=== PATIENT | female | born 1955 | race American Indian/Alaskan Native ===

== ENCOUNTER 2016-09-04 10:17 | Outpatient (CLI) | payer OTHER ==
--- NOTE | 2016-09-04 11:13 | XRay Report ---
RIGHT SHOULDER: Routine views demonstrate normal bony and soft tissue structures with normal joint alignment of the shoulder. IMPRESSION: Normal study.
--- NOTE | 2016-09-04 11:25 | XRay Report ---
Bilateral knee: History: Bilateral knee pain. Findings: There is calcification noted of the medial collateral ligament adjacent to the femoral condyle left knee. No articular abnormality. No fracture or dislocation. No definite bony or articular abnormality right kidney. No fracture, dislocation or soft tissue calcification. Impression: No acute changes. Findings as detailed above.
== END 2016-09-04 10:18 | disposition home or self-care (01) ==
LOC: XRAY 10:17
PROVIDERS: ATTEND Internal Medicine
DX: M23.8X2 Other internal derangements of left knee (principal); M23.8X1 Other internal derangements of right knee; E11.9 Type 2 diabetes mellitus without complications; I10 Essential (primary) hypertension; H53.19 Other subjective visual disturbances; E78.00 Pure hypercholesterolemia, unspecified

== ENCOUNTER 2017-02-18 03:30 | Inpatient (IN) | payer OTHER ==
--- NOTE | 2017-02-18 03:54 | Emergency Department Report ---
HPI - General Chief Complaint: Dyspnea/Respdistress Time Seen by Provider: 02/18/17 03:35 - [facility] HPI: Room 20 The patient is a 61-year-old female presenting with a chief complaint of shortness of breath. The patient states she was in her usual state of health until this morning at approximately 01:00 she awakened feeling short of breath. Patient denied chest pain at any time. EMS states when they arrived on scene the patient had a room air SPO2 of 50%. The patient was placed on a nonrebreather and her sats increased to approximately 71%. While en route EMS placed the patient on BiPAP and administered Solu-Medrol with subsequent increase in the patient's SPO2 to 98%. Upon arrival to the ED the patient had one episode of vomiting. Patient again denies chest pain Location: Lungs Duration: Constant since approximately 01:00 Quality: Shortness of breath Severity: Severe Modifying factors: [see above] Context: [see above] Mode of transportation: [not driving] ED Past Medical Hx - Past Medical History Previous Medical History?: Yes Hx Hypertension: Yes Hx Diabetes: Yes - Surgical History Past Surgical History?: No - Family History Family history: no significant - Social History Smoking Status: Never Smoker Substance Use Type: None ED Review of Systems ROS: Stated complaint: BELINDA Other details as noted in HPI Comment: All other systems reviewed and negative Constitutional: denies: chills, fever Eyes: denies: eye pain, eye discharge, vision change ENT: denies: ear pain, throat pain Respiratory: shortness of breath Cardiovascular: denies: chest pain, palpitations Endocrine: no symptoms reported Gastrointestinal: nausea, vomiting Genitourinary: denies: urgency, dysuria, discharge Musculoskeletal: denies: back pain, joint swelling, arthralgia Skin: denies: rash, lesions Neurological: denies: headache, weakness, paresthesias Psychiatric: denies: anxiety, depression Hematological/Lymphatic: denies: easy bleeding, easy bruising Physical Exam - Physical Exam Physical Exam: GENERAL: The patient is well-developed well-nourished female lying on stretcher with BiPAP in place. Has labored breathing but is able to answer questions HEENT: Normocephalic. Atraumatic. Extraocular motions are intact. Patient has moist mucous membranes. NECK: Supple. Trachea midline CHEST/LUNGS: Diminished diffusely. No wheezing auscultated. There is accessory muscle use HEART/CARDIOVASCULAR: Regular. There is no tachycardia. There is no gallop rub or murmur. ABDOMEN: Abdomen is soft, nontender. Patient has normal bowel sounds. There is no abdominal distention. SKIN: There is no rash. There is trace to 1+ bilateral lower extremity pitting edema. There is no diaphoresis. NEURO: The patient is awake, alert, and oriented. The patient is cooperative. The patient has normal speech MUSCULOSKELETAL: There is no evidence of acute injury. ED Medical Decision Making - Lab Data Result diagrams: 02/18/17 03:52 02/18/17 03:52 Laboratory Tests 02/18/17 02/18/17 02/18/17 03:52 03:52 03:52 WBC 12.9 H RBC 4.63 Hgb 11.5 Hct 36.4 MCV 79 MCH 25 L MCHC 32 RDW 14.3 Plt Count 290 Lymph % (Auto) 20.5 [place] % (Auto) 6.3 Eos % (Auto) 1.5 Baso % (Auto) 0.6 Lymph # 2.6 [place] # 0.8 Eos # 0.2 Baso # 0.1 Seg Neutrophils % 71.1 H Seg Neutrophils # 9.1 H PT 12.5 INR 0.94 APTT 25.7 D-Dimer POC ABG pH POC ABG pCO2 POC ABG pO2 POC ABG HCO3 POC ABG Total CO2 POC ABG O2 Sat POC ABG Base Excess FiO2 Sodium 132 L Potassium 5.2 H Chloride 90.9 L Carbon Dioxide 24 Anion Gap 22 BUN 18 H Creatinine 1.6 H Estimated GFR 40 BUN/Creatinine Ratio 11.25 Calcium 8.8 Total Bilirubin 0.20 AST 15 ALT 12 Alkaline Phosphatase 141 H Total Creatine Kinase 89 CK-MB (CK-2) 4.5 H CK-MB (CK-2) Rel Index 5.0 H Troponin T 0.057 H NT-Pro-B Natriuret Pep 812.0 Total Protein 7.1 Albumin 3.8 L Albumin/Globulin Ratio 1.2 Triglycerides 99 Cholesterol 255 H LDL Cholesterol Direct 153 H HDL Cholesterol 83 H Cholesterol/HDL Ratio 3.07 02/18/17 02/18/17 04:43 04:57 WBC RBC Hgb Hct MCV MCH MCHC RDW Plt Count Lymph % (Auto) [place] % (Auto) Eos % (Auto) Baso % (Auto) Lymph # [place] # Eos # Baso # Seg Neutrophils % Seg Neutrophils # PT INR APTT D-Dimer 370.62 H POC ABG pH 7.349 L POC ABG pCO2 50.7 H POC ABG pO2 138 H POC ABG HCO3 28.0 POC ABG Total CO2 29 POC ABG O2 Sat 99 POC ABG Base Excess 2 FiO2 50 Sodium Potassium Chloride Carbon Dioxide Anion Gap BUN Creatinine Estimated GFR BUN/Creatinine Ratio Calcium Total Bilirubin AST ALT Alkaline Phosphatase Total Creatine Kinase CK-MB (CK-2) CK-MB (CK-2) Rel Index Troponin T NT-Pro-B Natriuret Pep Total Protein Albumin Albumin/Globulin Ratio Triglycerides Cholesterol LDL Cholesterol Direct HDL Cholesterol Cholesterol/HDL Ratio - EKG Data -: EKG Interpreted by Me EKG shows normal: sinus rhythm Rate: tachycardia (116 bpm) - EKG Data When compared to previous EKG there are: previous EKG unavailable Interpretation: nonspecific ST-T wave tyra (T-wave inversion in lead 1 and aVL) - Radiology Data Radiology results: image reviewed (chest x-ray) interpreted by me: Chest [id number] haziness with right lower lobe atelectasis versus infiltrate. No pneumothorax - Differential Diagnosis ACS, pneumonia, pulmonary edema, CHF, PE Critical care attestation.: If time is entered above; I have spent that time in minutes in the direct care of this critically ill patient, excluding procedure time. ED Disposition Clinical Impression: Shortness of breath, Hypoxia, Renal insufficiency, Elevated troponin Disposition: OP ADMIT IP TO THIS HOSP Is pt being admited?: Yes Does the pt Need Aspirin: No (renal insufficiency) Condition: Fair Referrals: SHANEKA GRAVES DO [Other] - 3-5 Days Time of Disposition: 05:18 (hospitalist notified)
[2017-02-18 04:13] LABS: Basophils % (Auto) 0.6 % (0.0-1.8); Eosinophils % (Auto) 1.5 % (0.0-4.3); Hematocrit 36.4 % (30.3-42.9); Hemoglobin 11.5 gm/dl (10.1-14.3); Mean Corpuscular HGB Conc 32 % (30-34); Mean Corpuscular Volume 79 fl (79-97); Platelet Count 290 K/mm3 (140-440); Red Blood Count 4.63 M/mm3 (3.65-5.03); Red Cell Distribution Width 14.3 % (13.2-15.2); White Blood Count 12.9 K/mm3 (4.5-11.0)
[2017-02-18 04:22] LABS: Mean Corpuscular Hemoglobin 25 pg (28-32)
[2017-02-18 04:24] LABS: INR 0.94 (0.87-1.13)
[2017-02-18 04:25] LABS: Partial Thromboplastin Time 25.7 Sec. (24.2-36.6)
[2017-02-18 04:38] LABS: Creatine Kinase MB 4.5 ng/mL (0.0-4.0)
[2017-02-18 04:39] LABS: Albumin 3.8 g/dL (3.9-5); Albumin/Globulin Ratio 1.2 %; BUN/Creatinine Ratio 11.25; Bilirubin,Total 0.2 mg/dL (0.1-1.2); Calcium 8.8 mg/dL (8.4-10.2); Chloride 90.9 mmol/L (98-107); Potassium 5.2 mmol/L (3.6-5.0); Total Protein 7.1 g/dL (6.3-8.2)
[2017-02-18 05:03] LABS: ISTAT Base Excess 2; ISTAT PCO2 50.7 (35-45); ISTAT PH 7.349 (7.35-7.45); ISTAT PO2 138 (80-105); ISTAT SO2 99; ISTAT TCO2 29
[2017-02-18] MEDS ORDERED: ZOFRAN IV PRN (06:13)
[2017-02-18] MEDS ORDERED: DULCOLAX PR PRN (06:13)
[2017-02-18] MEDS ORDERED: TYLENOL PO PRN (06:13)
[2017-02-18] MEDS ORDERED: LASIX IV ONE (06:13)
[2017-02-18] MEDS ORDERED: MILK OF MAGNESIA PO PRN (06:13)
--- NOTE | 2017-02-18 06:36 | XRay Report ---
FINAL REPORT PROCEDURE: XR CHEST 1V AP TECHNIQUE: Chest radiograph anteroposterior view. CPT 77786 HISTORY: shortness of breath COMPARISON: No prior studies are available for comparison. FINDINGS: Heart: Normal. Mediastinum/Vessels: Normal. Lungs/Pleural space: There is suboptimal inspiration. There are infiltrates at the lung bases. There are no effusions or pneumothoraces.. Bony thorax: No acute osseous abnormality. Life support devices: None. IMPRESSION: Bibasilar pulmonary infiltrates. There are no effusions or pneumothoraces..
--- NOTE | 2017-02-18 06:39 | History and Physical Report ---
History of Present Illness Date of examination: 02/18/17 History of present illness: 61 yaer old woman with history of hypertension, diabetes, hyperlipidemia, glaucoma comes to ER for shortness of breath since october. She complains of PND, orthropnea, and lower exteremity swelling. Patient ran out of her antihypertensive since October, she has been taking her hydrochlorothiazide 50 mg twice a day. She stated that has help with her swelling. Patient was found to be hypoxic, was started on BiPAP and given-Solu- Medrol Review of systems Constitutional: no fever, no chills, no weight loss Ears, eyes, nose, mouth and throat: no nasal congestion, no nasal discharge, no sinus pressure, no vision change, no red eye. Neck: No neck pain or rigidity. Cardiovascular: chest pain, no orthopnea, no palpitations Respiratory: No cough, no congestion, no wheezing Gastrointestinal: abdominal pain, hematochezia, no nausea, no vomiting Genitourinary : no dysuria, frequency , no hematuria Musculoskeletal: no joint swelling or muscle ache Integumentary: no rash, no pruritis Neurological: no parathesias, no numbness, no focal weakness Endocrine: no cold or heat intolerance, no polyuria or polydipsia Hematologic/Lymphatic: no easy bruising, no easy bleeding, no gland swelling Allergic/Immunologic: no urticaria, no angioedema. PAST MEDICAL HISTORY:history of hypertension, diabetes, hyperlipidemia, glaucoma PAST SURGICAL HISTORY: eye Surgery FAMILY HISTORY: Hypertension SOCIAL HISTORY: Cut down on smoking, now smoked one cigarette a week, no alcohol or drugs Medications and Allergies Allergies Allergy/AdvReac Type Severity Reaction Status Date / Time No Known Allergies Allergy Verified 02/18/17 03:33 Active Meds: Active Medications Furosemide (Lasix) 40 mg IV ONCE ONE Stop: 02/18/17 06:14 Exam - Physical Exam Narrative exam: Gen. appearance: Patient lying in bed, no apparent distress HEENT: Normocephalic, atraumatic, pupils equally round and reactive to light, extraocular movement intact, and no sclericterus,. No JVD or thyromegaly or nodule,neck supple, no carotid bruit ,mucous membranes moist, no exudate or erythema Heart: S1, S2, regular rate and rhythm Lungs: Crackles bilaterally, breathing comfortable Abdomen: Positive bowel sounds, nontender, nondistended, no organomegaly Extremity: 2+ edema, no cyanosis, clubbing Skin: No rash, nodules, warm, dry Neuro: Oriented 3, cranial nerves II-12 intact, speech is fluent, motor and sensory intact - Constitutional Vitals: Temp Pulse Resp BP Pulse Ox 97.5 F L 116 H 17 150/78 100 02/18/17 05:18 02/18/17 05:01 02/18/17 05:01 02/18/17 05:01 02/18/17 05:01 Results - Labs CBC & Chem 7: 02/18/17 03:52 02/18/17 03:52 Labs: Abnormal lab results 02/18/17 02/18/17 02/18/17 Range/Units 03:52 03:52 04:43 WBC 12.9 H (4.5-11.0) K/mm3 MCH 25 L (28-32) pg Seg Neutrophils % 71.1 H (40.0-70.0) % Seg Neutrophils # 9.1 H (1.8-7.7) K/mm3 D-Dimer 370.62 H (0-234) ng/mlDDU POC ABG pH (7.35-7.45) POC ABG pCO2 (35-45) POC ABG pO2 (80-105) Sodium 132 L (137-145) mmol/L Potassium 5.2 H (3.6-5.0) mmol/L Chloride 90.9 L (98-107) mmol/L BUN 18 H (7-17) mg/dL Creatinine 1.6 H (0.7-1.2) mg/dL Glucose 596 H* (65-100) mg/dL Alkaline Phosphatase 141 H (35-129) units/L CK-MB (CK-2) 4.5 H (0.0-4.0) ng/mL CK-MB (CK-2) Rel Index 5.0 H (0-4) Troponin T 0.057 H (0.00-0.029) ng/mL Albumin 3.8 L (3.9-5) g/dL Cholesterol 255 H (50-199) mg/dL LDL Cholesterol Direct 153 H (50-130) mg/dL HDL Cholesterol 83 H (40-59) mg/dL 02/18/17 Range/Units 04:57 WBC (4.5-11.0) K/mm3 MCH (28-32) pg Seg Neutrophils % (40.0-70.0) % Seg Neutrophils # (1.8-7.7) K/mm3 D-Dimer (0-234) ng/mlDDU POC ABG pH 7.349 L (7.35-7.45) POC ABG pCO2 50.7 H (35-45) POC ABG pO2 138 H (80-105) Sodium (137-145) mmol/L Potassium (3.6-5.0) mmol/L Chloride (98-107) mmol/L BUN (7-17) mg/dL Creatinine (0.7-1.2) mg/dL Glucose (65-100) mg/dL Alkaline Phosphatase (35-129) units/L CK-MB (CK-2) (0.0-4.0) ng/mL CK-MB (CK-2) Rel Index (0-4) Troponin T (0.00-0.029) ng/mL Albumin (3.9-5) g/dL Cholesterol (50-199) mg/dL LDL Cholesterol Direct (50-130) mg/dL HDL Cholesterol (40-59) mg/dL - Imaging and Cardiology EKG: image reviewed Chest x-ray: image reviewed Assessment and Plan Assessment Acute respiratory failure Community-acquired pneumonia Possible CHF Renal insufficiency, ?acute versus chronic Hypertension Diabetes uncontrolled Hyperlipidemia Plan Admit to medicine Start Levaquin, obtain blood cultures Start Lasix, first dose now, beta elsa, aspirin, hold ROC inhibitor Check cardiac enzymes, echo, consult cardiology Check fingersticks initiate insulin sliding scale Start DVT prophylaxis
[2017-02-18] MEDS ORDERED: D50W (25GM) IV PRN (07:08)
[2017-02-18] MEDS: NOVOLOG SUB-Q SCH ×4 (08:30→22:45)
[2017-02-18] MEDS ORDERED: LEVAQUIN 750MG/150ML 750 MG/150 ML BAG IV ONE (08:40)
[2017-02-18] MEDS: LEVAQUIN 750MG/150ML 750 MG/150 ML BAG IV SCH (08:49)
[2017-02-18 09:40] LABS: BUN/Creatinine Ratio 13.33; Calcium 8.9 mg/dL (8.4-10.2); Chloride 91.7 mmol/L (98-107); Potassium 4.7 mmol/L (3.6-5.0)
[2017-02-18 09:42] LABS: Creatine Kinase MB 11.2 ng/mL (0.0-4.0)
[2017-02-18] MEDS ORDERED: LOVENOX SUB-Q SCH (10:00)
[2017-02-18] MEDS ORDERED: LOPRESSOR PO SCH (10:00)
[2017-02-18] MEDS ORDERED: NOVOLOG SUB-Q ONE (11:00)
--- NOTE | 2017-02-18 12:17 | Nuclear Medicine Report ---
FINAL REPORT EXAM: NM LUNG SCAN PERF/VENT HISTORY: shortness of breath TECHNIQUE: Routine VQ scan. 17 mCi xenon-133 gas. 4.2 mCi technetium 99m MAA. PRIORS: Chest x-ray 02/18/2017 FINDINGS: There is no VQ mismatch. Slightly heterogeneous perfusion images. IMPRESSION: 1. Very low probability of pulmonary embolism.
[2017-02-18] MEDS: ASPIRIN PO SCH (12:33)
[2017-02-18 12:45] LABS: Creatine Kinase MB 15.5 ng/mL (0.0-4.0)
--- NOTE | 2017-02-18 12:51 | Progress Note ---
Assessment and Plan Assessment and plan: Acute hypoxic respiratory failure. Continue O2 for supportive care. BiPAP as clinically indicated. BNP is normal. Community-acquired pneumonia. Continue pneumonia pathway. Continue IV antibiotics and follow cultures. Sepsis. Patient will be placed on the sepsis pathway. Follow-up lactic acid levels. Etiology secondary to above. Acute renal failure. Etiology is likely secondary to acute kidney injury from sepsis +/-dehydration/vasomotor nephropathy. Continue IV fluid hydration and follow-up BMP. Consider renal ultrasound if no significant improvement. Hypertension. Resume antihypertensives medications. Diabetes mellitus type 2. Continue Accu-Cheks and sliding scale insulin. Elevated troponin. Etiology may be secondary to sepsis and renal failure. Cardiology consultation and echocardiogram pending. Hyperlipidemia. History Interval history: Patient still complains of shortness of breath and cough. Hospitalist Physical - Constitutional Vitals: Temp Pulse Resp BP Pulse Ox 98.2 F 110 H 20 177/99 100 02/18/17 12:00 02/18/17 12:00 02/18/17 12:00 02/18/17 12:00 02/18/17 12:00 General appearance: Present: no acute distress, well-nourished - EENT Eyes: Present: PERRL, EOM intact ENT: hearing intact, clear oral mucosa, dentition normal - Neck Neck: Present: supple, normal ROM - Respiratory Respiratory effort: normal Respiratory: bilateral: diminished, rhonchi - Cardiovascular Rhythm: regular Heart Sounds: Present: S1 & S2. Absent: gallop, rub - Extremities Extremities: no ischemia, No edema, Full ROM - Abdominal General gastrointestinal: soft, non-tender, non-distended, normal bowel sounds - Integumentary Integumentary: Present: clear, warm, dry - Neurologic Neurologic: CNII-XII intact, moves all extremities Results - Labs CBC & Chem 7: 02/18/17 03:52 02/18/17 09:06 Labs: Laboratory Last Values WBC 12.9 K/mm3 (4.5-11.0) H 02/18/17 03:52 RBC 4.63 M/mm3 (3.65-5.03) 02/18/17 03:52 Hgb 11.5 gm/dl (10.1-14.3) 02/18/17 03:52 Hct 36.4 % (30.3-42.9) 02/18/17 03:52 MCV 79 fl (79-97) 02/18/17 03:52 MCH 25 pg (28-32) L 02/18/17 03:52 MCHC 32 % (30-34) 02/18/17 03:52 RDW 14.3 % (13.2-15.2) 02/18/17 03:52 Plt Count 290 K/mm3 (140-440) 02/18/17 03:52 Lymph % (Auto) 20.5 % (13.4-35.0) 02/18/17 03:52 [place] % (Auto) 6.3 % (0.0-7.3) 02/18/17 03:52 Eos % (Auto) 1.5 % (0.0-4.3) 02/18/17 03:52 Baso % (Auto) 0.6 % (0.0-1.8) 02/18/17 03:52 Lymph # 2.6 K/mm3 (1.2-5.4) 02/18/17 03:52 [place] # 0.8 K/mm3 (0.0-0.8) 02/18/17 03:52 Eos # 0.2 K/mm3 (0.0-0.4) 02/18/17 03:52 Baso # 0.1 K/mm3 (0.0-0.1) 02/18/17 03:52 Seg Neutrophils % 71.1 % (40.0-70.0) H 02/18/17 03:52 Seg Neutrophils # 9.1 K/mm3 (1.8-7.7) H 02/18/17 03:52 PT 12.5 Sec. (12.2-14.9) 02/18/17 03:52 INR 0.94 (0.87-1.13) 02/18/17 03:52 APTT 25.7 Sec. (24.2-36.6) 02/18/17 03:52 D-Dimer 370.62 ng/mlDDU (0-234) H 02/18/17 04:43 POC ABG pH 7.349 (7.35-7.45) L 02/18/17 04:57 POC ABG pCO2 50.7 (35-45) H 02/18/17 04:57 POC ABG pO2 138 (80-105) H 02/18/17 04:57 POC ABG HCO3 28.0 02/18/17 04:57 POC ABG Total CO2 29 02/18/17 04:57 POC ABG O2 Sat 99 02/18/17 04:57 POC ABG Base Excess 2 02/18/17 04:57 FiO2 50 % 02/18/17 04:57 Sodium 132 mmol/L (137-145) L 02/18/17 09:06 Potassium 4.7 mmol/L (3.6-5.0) 02/18/17 09:06 Chloride 91.7 mmol/L (98-107) L 02/18/17 09:06 Carbon Dioxide 24 mmol/L (22-30) 02/18/17 09:06 Anion Gap 21 mmol/L 02/18/17 09:06 BUN 20 mg/dL (7-17) H 02/18/17 09:06 Creatinine 1.5 mg/dL (0.7-1.2) H 02/18/17 09:06 Estimated GFR 43 ml/min 02/18/17 09:06 BUN/Creatinine Ratio 13.33 % 02/18/17 09:06 Glucose 530 mg/dL (65-100) H* 02/18/17 09:06 POC Glucose 361 (70-105) H 02/18/17 11:50 Calcium 8.9 mg/dL (8.4-10.2) 02/18/17 09:06 Total Bilirubin 0.20 mg/dL (0.1-1.2) 02/18/17 03:52 AST 15 units/L (5-40) 02/18/17 03:52 ALT 12 units/L (7-56) 02/18/17 03:52 Alkaline Phosphatase 141 units/L (35-129) H 02/18/17 03:52 Total Creatine Kinase 190 units/L (30-135) H 02/18/17 09:06 CK-MB (CK-2) 15.5 ng/mL (0.0-4.0) H 02/18/17 12:14 CK-MB (CK-2) Rel Index 5.8 (0-4) H 02/18/17 09:06 Troponin T 0.157 ng/mL (0.00-0.029) H* D 02/18/17 09:06 NT-Pro-B Natriuret Pep 812.0 pg/mL (0-900) 02/18/17 03:52 Total Protein 7.1 g/dL (6.3-8.2) 02/18/17 03:52 Albumin 3.8 g/dL (3.9-5) L 02/18/17 03:52 Albumin/Globulin Ratio 1.2 % 02/18/17 03:52 Triglycerides 99 mg/dL (2-149) 02/18/17 03:52 Cholesterol 255 mg/dL (50-199) H 02/18/17 03:52 LDL Cholesterol Direct 153 mg/dL (50-130) H 02/18/17 03:52 HDL Cholesterol 83 mg/dL (40-59) H 02/18/17 03:52 Cholesterol/HDL Ratio 3.07 % 02/18/17 03:52
--- NOTE | 2017-02-18 17:21 | Consultation ---
History of Present Illness Consult date: 02/18/17 Medications and Allergies Allergies Allergy/AdvReac Type Severity Reaction Status Date / Time No Known Allergies Allergy Verified 02/18/17 03:33 Active Meds: Active Medications Acetaminophen (Tylenol) 650 mg PO Q4H PRN PRN Reason: Pain MILD(1-3)/Fever >100.5/ANTHONY Aspirin (Aspirin) 325 mg PO QDAY [facility] Last Admin: 02/18/17 12:33 Dose: 325 mg Bisacodyl (Dulcolax) 10 mg [place] QDAY PRN PRN Reason: Constipation unrelieved by [facility] Dextrose (D50w (25gm)) 50 ml IV PRN PRN PRN Reason: Hypoglycemia Enoxaparin Sodium (Lovenox) 30 mg SUB-Q QDAY [facility] Last Admin: 02/18/17 12:33 Dose: 30 mg Levofloxacin/Dextrose (Levaquin 750mg/150ml) 750 mg in 150 mls @ 100 mls/hr IV Q24HR TIA PRN Reason: Protocol Last Admin: 02/18/17 08:49 Dose: 100 mls/hr Insulin Aspart (Novolog) 0 units SUB-Q ACHS [facility] PRN Reason: Protocol Last Admin: 02/18/17 12:33 Dose: 10 units Magnesium Hydroxide (Milk Of Magnesia) 30 ml PO Q4H PRN PRN Reason: Constipation Metoprolol Tartrate (Lopressor) 12.5 mg PO BID [facility] Last Admin: 02/18/17 12:47 Dose: 12.5 mg Ondansetron HCl (Zofran) 4 mg IV Q8H PRN PRN Reason: N/V unrelieved by Reglan Physical Examination Vital Signs Resp 14 02/18/17 03:26 Results 02/18/17 03:52 02/18/17 09:06 Cardiac Enzymes 02/18/17 02/18/17 Range/Units 09:06 12:14 CK-MB (CK-2) 11.2 H 15.5 H (0.0-4.0) ng/mL Comprehensive Metabolic Panel 02/18/17 Range/Units 09:06 Sodium 132 L (137-145) mmol/L Potassium 4.7 (3.6-5.0) mmol/L Chloride 91.7 L (98-107) mmol/L Carbon Dioxide 24 (22-30) mmol/L BUN 20 H (7-17) mg/dL Creatinine 1.5 H (0.7-1.2) mg/dL Glucose 530 H* (65-100) mg/dL Calcium 8.9 (8.4-10.2) mg/dL Assessment and Plan Detailed Cardiology consult dictated.
[2017-02-18] MEDS ORDERED: PLAVIX PO ONE (17:24)
[2017-02-18] MEDS ORDERED: HEPARIN 10,000 UNITS/10 ML IV ONE (17:27)
[2017-02-18 18:15] LABS: Hematocrit 35.4 % (30.3-42.9); Hemoglobin 11.2 gm/dl (10.1-14.3)
[2017-02-18 18:24] LABS: INR 1.01 (0.87-1.13)
[2017-02-18 18:25] LABS: Partial Thromboplastin Time 29.6 Sec. (24.2-36.6)
[2017-02-18] MEDS: HEPARIN/ 0.45% NACL-25,000 UNIT/500 ML 25,000 UNIT/500 ML BAG IV SCH (21:38)
[2017-02-18] MEDS: LEVEMIR SUB-Q SCH (23:30)
[2017-02-18] MEDS: LOPRESSOR PO SCH (23:30)
--- NOTE | 2017-02-19 04:37 | Admit Criteria Form ---
Admission Criteria Documentation: RESPIRATORY FAILURE GRG Clinical Indications for Admission to Inpatient Care (Place 'X' for any and all applicable criteria): Hospital admission is needed for appropriate care of the patient because of acute respiratory failure or insufficiency as indicated by ANY ONE of the following(1)(2)(3)(4)(5)(6)(7)(8): [X ]I. Mechanical ventilation needed (acute invasive or noninvasive) [ ]II. Severe ventilation deficit as indicated by ANY ONE of the following (9) [ ]a) Respiratory acidosis (pH less than 7.32 and partial pressure of carbon dioxide greater than 40 mm Hg (5.3 kPa)) [ ]b) Partial pressure of carbon dioxide greater than 44 mm Hg (5.9 kPa ) (new) [ ]c) Airflow measurements less than 25% of predicted (eg, peak expiratory flow rate less than 100 L/minute) [ ]d) Forced vital capacity less than 15 mL/kg of ideal body weight, or 50% decrease in vital capacity from baseline [ ]III. Noncardiac pulmonary edema not resolving with rapid emergency treatment (8) [ ]IV. Severe respiratory distress as indicated by ANY ONE of the following: [ ]a) Severe tachypnea (respiratory rate greater than 30, greater than 45 for 6-month-old, greater than 60 for ) [ ]b) Severe hypoxemia (partial pressure of oxygen less than 50 mm Hg ( 6.7 kPa) on greater than 50% oxygen or partial pressure of oxygen to FIO2 ratio less than 200) [ ]c) Mental status deterioration from respiratory disease [ ]V. Airway obstruction or inadequate protection [A](10)(11) The original [employer] content created by [employer] has been revised. The portions of the content which have been revised are identified through the use of italic text or in bold, and [email or web address] has neither reviewed nor approved the modified material. All other unmodified content is copyright [employer]. Please see references footnoted in the original [employer] edition 2016 Admission Criteria Met: Yes
[2017-02-19 07:09] LABS: Hematocrit 32.4 % (30.3-42.9); Hemoglobin 10.5 gm/dl (10.1-14.3); Mean Corpuscular HGB Conc 32 % (30-34); Mean Corpuscular Volume 78 fl (79-97); Platelet Count 270 K/mm3 (140-440); Red Blood Count 4.15 M/mm3 (3.65-5.03); Red Cell Distribution Width 14.7 % (13.2-15.2)
[2017-02-19 07:15] LABS: BUN/Creatinine Ratio 16.42; Calcium 8.9 mg/dL (8.4-10.2); Chloride 93.1 mmol/L (98-107); Potassium 3.9 mmol/L (3.6-5.0)
[2017-02-19 07:17] LABS: Mean Corpuscular Hemoglobin 25 pg (28-32); White Blood Count 20.5 K/mm3 (4.5-11.0)
[2017-02-19] MEDS: NOVOLOG SUB-Q SCH ×4 (08:37→21:59)
[2017-02-19] MEDS: LOPRESSOR PO SCH ×2 (09:23→22:08)
[2017-02-19] MEDS: PLAVIX PO SCH (09:24)
[2017-02-19] MEDS: ASPIRIN PO SCH (09:24)
[2017-02-19 09:25] LABS: Basophils % (Manual) 0 % (0.0-1.8); Blastocytes % (Manual) 0 %; Eosinophils % (Manual) 0 % (0.0-4.3)
[2017-02-19] MEDS: LEVAQUIN 750MG/150ML 750 MG/150 ML BAG IV SCH ×2 (09:25→09:26)
[2017-02-19 09:26] LABS: Hypochromasia 1+
[2017-02-19 09:28] LABS: Diff Status Complete
--- NOTE | 2017-02-19 11:52 | Progress Note ---
Assessment and Plan Assessment and plan: Acute hypoxic respiratory failure. Continue O2 for supportive care. BiPAP as clinically indicated. BNP is normal. Community-acquired pneumonia. Continue pneumonia pathway. Continue IV antibiotics and follow cultures. Sepsis. Patient will be placed on the sepsis pathway. Follow-up lactic acid levels. Etiology secondary to above. Acute COPD exacerbation. New diagnosis. Patient with wheezing on exam and 35 pack year smoking history. Patient will need follow-up as an outpatient with PFTs. Start IV steroids/bronchodilators/nebulizer. Place patient on COPD pathway. Acute renal failure. Etiology is likely secondary to acute kidney injury from sepsis +/-dehydration/vasomotor nephropathy. Continue IV fluid hydration and follow-up BMP. Consider renal ultrasound if no significant improvement. Hypertension. Resume antihypertensives medications. Diabetes mellitus type 2. Continue Accu-Cheks and sliding scale insulin. Elevated troponin. Etiology may be secondary to sepsis and renal failure. Cardiology consultation and echocardiogram pending. Hyperlipidemia. ? PVD. Patient with diminished DP pulses bilaterally but palpable. Given tobacco abuse history, we will rule out peripheral vascular disease. Check XENA/ arterial Dopplers. Consider vascular surgery consultation. Tobacco abuse. Patient has been counseled with tobacco cessation. History Interval history: Patient still complains of shortness of breath and cough. Patient also complains of left foot numbness. Hospitalist Physical - Constitutional Vitals: Temp Pulse Resp BP Pulse Ox 98.4 F 102 H 18 131/65 98 02/19/17 05:00 02/19/17 07:58 02/19/17 05:00 02/19/17 05:00 02/19/17 10:19 General appearance: Present: no acute distress, well-nourished - EENT Eyes: Present: PERRL, EOM intact ENT: hearing intact, clear oral mucosa, dentition normal - Neck Neck: Present: supple, normal ROM - Respiratory Respiratory effort: normal Respiratory: bilateral: CTA - Cardiovascular Rhythm: regular Heart Sounds: Present: S1 & S2. Absent: gallop, rub - Extremities Extremities: No edema, Full ROM Extremity abnormal: pulses diminished (bilateral L>R) - Abdominal General gastrointestinal: soft, non-tender, non-distended, normal bowel sounds - Integumentary Integumentary: Present: clear, warm, dry - Neurologic Neurologic: CNII-XII intact, moves all extremities Results - Labs CBC & Chem 7: 02/19/17 06:08 02/19/17 06:08 Labs: Laboratory Last Values WBC 20.5 K/mm3 (4.5-11.0) H 02/19/17 06:08 RBC 4.15 M/mm3 (3.65-5.03) 02/19/17 06:08 Hgb 10.5 gm/dl (10.1-14.3) 02/19/17 06:08 Hct 32.4 % (30.3-42.9) 02/19/17 06:08 MCV 78 fl (79-97) L 02/19/17 06:08 MCH 25 pg (28-32) L 02/19/17 06:08 MCHC 32 % (30-34) 02/19/17 06:08 RDW 14.7 % (13.2-15.2) 02/19/17 06:08 Plt Count 270 K/mm3 (140-440) 02/19/17 06:08 Lymph % (Auto) 20.5 % (13.4-35.0) 02/18/17 03:52 Whitman % (Auto) 6.3 % (0.0-7.3) 02/18/17 03:52 Eos % (Auto) 1.5 % (0.0-4.3) 02/18/17 03:52 Baso % (Auto) 0.6 % (0.0-1.8) 02/18/17 03:52 Lymph # Tint Layer 02/19/17 06:08 Whitman # 0.8 K/mm3 (0.0-0.8) 02/18/17 03:52 Eos # 0.2 K/mm3 (0.0-0.4) 02/18/17 03:52 Baso # 0.1 K/mm3 (0.0-0.1) 02/18/17 03:52 Add Manual Diff Complete 02/19/17 06:08 Total Counted 100 02/19/17 06:08 Seg Neutrophils % 71.1 % (40.0-70.0) H 02/18/17 03:52 Seg Neuts % (Manual) 82.0 % (40.0-70.0) H 02/19/17 06:08 Band Neutrophils % 0 % 02/19/17 06:08 Lymphocytes % (Manual) 10.0 % (13.4-35.0) L 02/19/17 06:08 Reactive Lymphs % (Man) 0 % 02/19/17 06:08 Monocytes % (Manual) 8.0 % (0.0-7.3) H 02/19/17 06:08 Eosinophils % (Manual) 0 % (0.0-4.3) 02/19/17 06:08 Basophils % (Manual) 0 % (0.0-1.8) 02/19/17 06:08 Metamyelocytes % 0 % 02/19/17 06:08 Myelocytes % 0 % 02/19/17 06:08 Promyelocytes % 0 % 02/19/17 06:08 Blast Cells % 0 % 02/19/17 06:08 Nucleated RBC % Not Reportable 02/19/17 06:08 Seg Neutrophils # 9.1 K/mm3 (1.8-7.7) H 02/18/17 03:52 Seg Neutrophils # Man 16.8 K/mm3 (1.8-7.7) H 02/19/17 06:08 Band Neutrophils # 0.0 K/mm3 02/19/17 06:08 Lymphocytes # (Manual) 2.1 K/mm3 (1.2-5.4) 02/19/17 06:08 Abs React Lymphs (Man) 0.0 K/mm3 02/19/17 06:08 Monocytes # (Manual) 1.6 K/mm3 (0.0-0.8) H 02/19/17 06:08 Eosinophils # (Manual) 0.0 K/mm3 (0.0-0.4) 02/19/17 06:08 Basophils # (Manual) 0.0 K/mm3 (0.0-0.1) 02/19/17 06:08 Metamyelocytes # 0.0 K/mm3 02/19/17 06:08 Myelocytes # 0.0 K/mm3 02/19/17 06:08 Promyelocytes # 0.0 K/mm3 02/19/17 06:08 Blast Cells # 0.0 K/mm3 02/19/17 06:08 WBC Morphology Not Reportable 02/19/17 06:08 Hypersegmented Neuts Not Reportable 02/19/17 06:08 Hyposegmented Neuts Not Reportable 02/19/17 06:08 Hypogranular Neuts Not Reportable 02/19/17 06:08 Smudge Cells Not Reportable 02/19/17 06:08 Toxic Granulation Not Reportable 02/19/17 06:08 Toxic Vacuolation Not Reportable 02/19/17 06:08 Dohle Bodies Not Reportable 02/19/17 06:08 Pelger-Huet Anomaly Not Reportable 02/19/17 06:08 Raquel Rods Not Reportable 02/19/17 06:08 Platelet Estimate Appears normal 02/19/17 06:08 Clumped Platelets Not Reportable 02/19/17 06:08 Plt Clumps, EDTA Not Reportable 02/19/17 06:08 Large Platelets Not Reportable 02/19/17 06:08 Giant Platelets Not Reportable 02/19/17 06:08 Platelet Satelliting Not Reportable 02/19/17 06:08 Plt Morphology Comment Not Reportable 02/19/17 06:08 RBC Morphology Not Reportable 02/19/17 06:08 Dimorphic RBCs Not Reportable 02/19/17 06:08 Polychromasia Not Reportable 02/19/17 06:08 Hypochromasia 1+ 02/19/17 06:08 Poikilocytosis Not Reportable 02/19/17 06:08 Anisocytosis Not Reportable 02/19/17 06:08 Microcytosis Not Reportable 02/19/17 06:08 Macrocytosis Not Reportable 02/19/17 06:08 Spherocytes Not Reportable 02/19/17 06:08 Pappenheimer Bodies Not Reportable 02/19/17 06:08 Sickle Cells Not Reportable 02/19/17 06:08 Target Cells Not Reportable 02/19/17 06:08 Tear Drop Cells Not Reportable 02/19/17 06:08 Ovalocytes Not Reportable 02/19/17 06:08 Helmet Cells Not Reportable 02/19/17 06:08 Arreola-Dupo Bodies Not Reportable 02/19/17 06:08 [place] Rings Not Reportable 02/19/17 06:08 Nixon Cells Not Reportable 02/19/17 06:08 Bite Cells Not Reportable 02/19/17 06:08 Crenated Cell Not Reportable 02/19/17 06:08 Elliptocytes Not Reportable 02/19/17 06:08 Acanthocytes (Spur) Not Reportable 02/19/17 06:08 Rouleaux Not Reportable 02/19/17 06:08 Hemoglobin C Crystals Not Reportable 02/19/17 06:08 Schistocytes Not Reportable 02/19/17 06:08 Malaria parasites Not Reportable 02/19/17 06:08 Sachin Bodies Not Reportable 02/19/17 06:08 Hem Pathologist Commnt No 02/19/17 06:08 PT 13.2 Sec. (12.2-14.9) 02/18/17 17:42 INR 1.01 (0.87-1.13) 02/18/17 17:42 APTT 29.6 Sec. (24.2-36.6) 02/18/17 17:42 D-Dimer 370.62 ng/mlDDU (0-234) H 02/18/17 04:43 Heparin Anti-Xa Level 0.61 U.I./ml (0.3-0.7) 02/19/17 06:08 POC ABG pH 7.349 (7.35-7.45) L 02/18/17 04:57 POC ABG pCO2 50.7 (35-45) H 02/18/17 04:57 POC ABG pO2 138 (80-105) H 02/18/17 04:57 POC ABG HCO3 28.0 02/18/17 04:57 POC ABG Total CO2 29 02/18/17 04:57 POC ABG O2 Sat 99 02/18/17 04:57 POC ABG Base Excess 2 02/18/17 04:57 FiO2 50 % 02/18/17 04:57 Sodium 134 mmol/L (137-145) L 02/19/17 06:08 Potassium 3.9 mmol/L (3.6-5.0) 02/19/17 06:08 Chloride 93.1 mmol/L (98-107) L 02/19/17 06:08 Carbon Dioxide 26 mmol/L (22-30) 02/19/17 06:08 Anion Gap 19 mmol/L 02/19/17 06:08 BUN 23 mg/dL (7-17) H 02/19/17 06:08 Creatinine 1.4 mg/dL (0.7-1.2) H 02/19/17 06:08 Estimated GFR 46 ml/min 02/19/17 06:08 BUN/Creatinine Ratio 16.42 % 02/19/17 06:08 Glucose 278 mg/dL (65-100) H 02/19/17 06:08 POC Glucose 298 (70-105) H 02/19/17 08:14 Calcium 8.9 mg/dL (8.4-10.2) 02/19/17 06:08 Total Bilirubin 0.20 mg/dL (0.1-1.2) 02/18/17 03:52 AST 15 units/L (5-40) 02/18/17 03:52 ALT 12 units/L (7-56) 02/18/17 03:52 Alkaline Phosphatase 141 units/L (35-129) H 02/18/17 03:52 Total Creatine Kinase 255 units/L (30-135) H 02/18/17 12:14 CK-MB (CK-2) 15.5 ng/mL (0.0-4.0) H 02/18/17 12:14 CK-MB (CK-2) Rel Index 6.0 (0-4) H 02/18/17 12:14 Troponin T 0.154 ng/mL (0.00-0.029) H* 02/18/17 12:14 NT-Pro-B Natriuret Pep 812.0 pg/mL (0-900) 02/18/17 03:52 Total Protein 7.1 g/dL (6.3-8.2) 02/18/17 03:52 Albumin 3.8 g/dL (3.9-5) L 02/18/17 03:52 Albumin/Globulin Ratio 1.2 % 02/18/17 03:52 Triglycerides 99 mg/dL (2-149) 02/18/17 03:52 Cholesterol 255 mg/dL (50-199) H 02/18/17 03:52 LDL Cholesterol Direct 153 mg/dL (50-130) H 02/18/17 03:52 HDL Cholesterol 83 mg/dL (40-59) H 02/18/17 03:52 Cholesterol/HDL Ratio 3.07 % 02/18/17 03:52
[2017-02-19] MEDS: ZESTRIL PO SCH (12:51)
--- NOTE | 2017-02-19 14:47 | Progress Note ---
Assessment and Plan Present management.F/U BMP daily.Will need cardiac cath for further evaluation. The benefits and risks of the procedure(s) were explained to the pt and her at bedside. They understand and want us to proceed.( procedure will be on 02/21/17 if renal funtion is acceptable). - Patient Problems (1) Non-STEMI (non-ST elevated myocardial infarction) Current Visit: Yes Status: Acute (2) LV dysfunction Current Visit: Yes Status: Acute (3) Pneumonia Current Visit: Yes Status: Acute Qualifiers: Pneumonia type: P Aspiration pneumonia type: A Laterality: L Lung location: L (4) Hypertension Current Visit: Yes Status: Chronic Qualifiers: Hypertension type: H (5) Hyperlipidemia Current Visit: Yes Status: Chronic Qualifiers: Hyperlipidemia type: H (6) Type 2 diabetes mellitus Current Visit: Yes Status: Chronic Qualifiers: Diabetes mellitus complication status: D Diabetes mellitus complication detail: D Diabetic retinopathy severity: D Proliferative retinopathy type: P Diabetes mellitus macular edema: D Diabetes mellitus mcfp insulin use : D Laterality: L Chronic kidney disease stage: C (7) Acute systolic (congestive) heart failure Current Visit: Yes Status: Acute (8) Acute kidney injury superimposed on chronic kidney disease Current Visit: Yes Status: Acute (9) Elevated troponin Current Visit: Yes Status: Acute Subjective Date of service: 02/19/17 (NonSTE ID, Pneumonia) Interval history: SOB - slghtly less.WBC 20.5,H and H 10.5 and 32.4, K 3.9, Cr: 1.4.(improved). Echo: Moderate LV systolic dysfunction LVEF 35 to 40%. Mild MR, No pericardial effusion. Objective Vital Signs Temp Pulse Resp BP Pulse Ox 02/19/17 12:00 98.4 F 84 20 132/75 98 02/19/17 10:19 98 02/19/17 07:58 102 H 02/19/17 05:00 98.4 F 81 18 131/65 99 02/19/17 00:00 98.2 F 98 H 18 140/65 100 02/18/17 23:30 98 H 140/65 02/18/17 20:57 99 02/18/17 20:00 98.1 F 99 H 18 140/80 97 02/18/17 18:12 98.4 F 75 18 136/75 100 - Physical Examination General: No Apparent Distress, Other (Morbidly obese) HEENT: Positive: PERRL, Normocephaly, Mucus Membranes Moist Neck: Positive: neck supple, trachea midline Cardiac: Positive: Reg Rate and Rhythm Lungs: Positive: clear to auscultation, Normal Breath Sounds Neuro: Positive: Grossly Intact Abdomen: Positive: Soft, Active Bowel Sounds Skin: Positive: Clear. Negative: Rash Musculoskeletal: No Fluid Collection, No Pain, Normal Range of Motion Extremities: Present: normal, upper extr. pulses, lower extr. pulses - Labs and Meds Coagulation 02/18/17 Range/Units 17:42 PT 13.2 (12.2-14.9) Sec. INR 1.01 (0.87-1.13) APTT 29.6 (24.2-36.6) Sec. CBC 02/18/17 02/19/17 Range/Units 17:42 06:08 WBC 20.5 H (4.5-11.0) K/mm3 RBC 4.15 (3.65-5.03) M/mm3 Hgb 11.2 10.5 (10.1-14.3) gm/dl Hct 35.4 32.4 (30.3-42.9) % Plt Count 287 270 (140-440) K/mm3 Lymph # [facility] Metabolic Panel 02/19/17 Range/Units 06:08 Sodium 134 L (137-145) mmol/L Potassium 3.9 (3.6-5.0) mmol/L Chloride 93.1 L (98-107) mmol/L Carbon Dioxide 26 (22-30) mmol/L BUN 23 H (7-17) mg/dL Creatinine 1.4 H (0.7-1.2) mg/dL Glucose 278 H (65-100) mg/dL Calcium 8.9 (8.4-10.2) mg/dL - Imaging and Cardiology EKG: report reviewed, image reviewed - Telemetry EKG Rhythm: Sinus Rhythm - EKG Sinus rhythms and dysrhythmias: sinus rhythm
[2017-02-19] MEDS: DUONEB *Not for PRN Use IH SCH ×3 (15:41→20:45)
--- NOTE | 2017-02-19 16:10 | Consultation ---
REFERRING PHYSICIAN: Dr. Elver Perez, hospitalist. TIME: 5:05 p.m. HISTORY OF PRESENT ILLNESS: A 61-year-old morbidly obese (BMI of 42.9) pleasant -[place] woman with a history of multiple medical problems as hypertension, hyperlipidemia, type 2 diabetes mellitus and glaucoma, was admitted with progressive shortness of breath for the past 3 months, which became more marked for the past few days. Apparently, she lost her insurance during October 2016 and she stopped taking her medications except insulin. She started taking her 's HCTZ 50 mg p.o. b.i.d. for control of her blood pressure. The patient also gives history of orthopnea. Shortness of breath was so progressive, she started having it even on mild exertion. She did not have any chest pain. She had some nausea and dizziness and presyncope, but no history of syncope. She also had sweating, but no palpitations. Her blood sugar was markedly increased (high 500 range) and is being treated. Serum creatinine is 1.5 with a normal potassium and mild hyponatremia (132). CPKs were 89, 190 and 255 with positive MB fractions and CPK-MB indices of 5.8 and 6. The first troponin was 0.057, repeat troponins of 0.157 and 0.154. It appears that she has had non-ST elevation myocardial infarction. Chest x-ray revealed bilateral lower lobe infiltrates and she is being treated for pneumonia. She had a VQ lung scan reveals a very low probability for pulmonary embolism. MEDICATIONS: She is on aspirin 325 mg p.o. daily and metoprolol 12.5 mg p.o. b.i.d. PAST MEDICAL HISTORY: History of multiple medical problems as described above. She has been noncompliant with her medications because of lack of insurance since October 2016. 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 SOCIAL HISTORY: She has been a smoker. She has at least about 30 pack years of cigarette smoking and gradually came down on the number of cigarettes and she quit smoking a month ago. No history of alcoholic or drug abuse. FAMILY HISTORY: As per her mother had myocardial infarction at age of 63. Father had myocardial infarction at the age of 52. Further details are not known at this time. ALLERGIES: None known. HOME MEDICATIONS: Aspirin 325 mg p.o. daily, Lovenox 30 mg subQ daily, IV Levaquin 750 mg daily, metoprolol tartrate 12.5 mg p.o. b.i.d. REVIEW OF SYSTEMS: CARDIOVASCULAR: As described in the history. METABOLISM AND ENDOCRINOLOGY: As described in the history. RENAL: As described in the history. PULMONARY: As described in the history. Review of rest of the 10 systems is negative. PHYSICAL EXAMINATION: GENERAL: A 61-year-old morbidly obese, pleasant -[place] woman, not in acute distress. VITAL SIGNS: She is afebrile, pulse 110 per minute regular, respirations 18 per minute, blood pressure 177/99 mmHg. NEUROLOGIC: She is alert and oriented x 3. HEENT: Negative. NECK: Supple, no JVD, no bruit, no thyromegaly. HEART: PMI could not be felt satisfactorily, no palpable thrills. Auscultation of the heart reveals S1, S2. Regular S2 is loud. S4 is heard. No S3. Grade 2/6 harsh ejection systolic murmur is heard over the precardium, more prominent over the base. EXTREMITIES: Peripheral pulses felt. No edema. LUNGS: Bilateral air entry, decreased over the bases. No bronchial breathing, no wheezing. ABDOMEN: Soft, benign. No organomegaly. SKIN: Negative. BONE AND JOINTS: Negative. LABORATORY DATA: Cardiac enzymes as described in the history. D-diameter increased at 71, alkaline phosphatase increased to 141, WBC 12.9. Hemoglobin, hematocrit and platelet count within normal limits. Chest x-ray findings as described in the history. EKG done today, sinus tachycardia with rate of 116 per minute, possible left atrial enlargement, poor R-wave progression with nonspecific IVCD (V2 through V4) and ST-T abnormalities in the anterolateral leads, possible ischemia. IMPRESSION: 1. Non-ST elevation myocardial infarction, age is indeterminate. 2. Noncompliance. 3. History of multiple medical problems -- hypertension, hyperlipidemia, type 2 diabetes mellitus and glaucoma. 4. Uncontrolled blood sugar and marked hyperlipidemia. 5. Hyponatremia. 6. Eguco-ww-hcdnoli kidney disease. 7. Abnormal CPK-MB fractions and abnormal troponin. 8. Pulmonary embolism, ruled out by VQ lung scan. 9. Morbid obesity. 10. Pneumonia. 11. Possible congestive heart failure. RECOMMENDATIONS: 1. To continue present management. 2. We will increase the beta-elsa dose and to continue aspirin. 3. Plavix [address] and [address] her on 75 mg p.o. daily. 4. Would also initiate antilipid agents, atorvastatin 40 mg p.o. daily. 5. Fasting lipid panel in a.m. 6. Discontinue Lovenox and we will place her on intravenous heparin on standard dose. 7. We will follow up echocardiogram. Further recommendations will follow. ADDENDUM The patient's lipid profile done at 3:59 a.m. revealed a total cholesterol of 255, LDL of 153, HDL of 83 and triglycerides of 99 (patient is started on atorvastatin 40 mg at bedtime). JOB# [id number] NOMAN/HORACE VOGEL
[2017-02-19] MEDS: HEPARIN/ 0.45% NACL-25,000 UNIT/500 ML 25,000 UNIT/500 ML BAG IV SCH (16:13)
[2017-02-19] MEDS: LEVEMIR SUB-Q SCH (22:07)
[2017-02-19] MEDS ORDERED: PROVENTIL IH PRN (23:34)
[2017-02-20 08:47] LABS: Hematocrit 35.9 % (30.3-42.9); Hemoglobin 11.4 gm/dl (10.1-14.3)
--- NOTE | 2017-02-20 08:55 | Progress Note ---
<SAJAN CORONADO - Last Filed: 02/20/17 15:08> Assessment and Plan Assessment and plan: Acute hypoxic respiratory failure Continue O2 for supportive care. BiPAP as clinically indicated. BNP is normal. Elevated troponin. NSTEMI Patient scheduled tomorrow for coronary angiogram [facility] Managed By Cardiology echocardiogram shows moderate LV systolic dysfunction LVEF 35 to 40%. Mild MR, No pericardial effusion. Community-acquired pneumonia. Continue pneumonia pathway. Continue IV antibiotics and follow cultures. Sepsis Patient will be placed on the sepsis pathway. Follow-up lactic acid levels. Etiology secondary to above. Acute COPD exacerbation. New diagnosis. Patient with wheezing on exam and 35 pack year smoking history. Patient will need follow-up as an outpatient with PFTs. Start IV steroids/ bronchodilators/nebulizer. Place patient on COPD pathway. Acute renal failure. Etiology is likely secondary to acute kidney injury from sepsis +/-dehydration/ vasomotor nephropathy. Continue IV fluid hydration and follow-up BMP. Serum Cr continues to improve Hypertension. Resume antihypertensives medications. Diabetes mellitus type 2. Continue Accu-Cheks and Sliding scale insulin. Hyperlipidemia. Continue on home antilipid pills Discussed with the patient about the importance of physical exercise, low fat diet, reducing intake of high fat foods to improve cardiovascular diseases. Peripheral vascular disease Patient with diminished DP pulses bilaterally but palpable. Given tobacco abuse history, we will rule out peripheral vascular disease. Check XENA/arterial Dopplers. Consider vascular surgery consultation. Tobacco abuse. Patient has been counseled with tobacco cessation. DVT prophylaxis Heparin drip. History Interval history: Patient has uneventful overnight. Hospitalist Physical - Constitutional Vitals: Temp Pulse Resp BP Pulse Ox 98.5 F 92 H 20 145/67 100 02/20/17 05:01 02/20/17 05:01 02/20/17 05:01 02/20/17 05:01 02/20/17 05:01 General appearance: Present: no acute distress, well-nourished - EENT Eyes: Present: PERRL ENT: hearing intact - Neck Neck: Present: supple - Respiratory Respiratory effort: normal Respiratory: bilateral: wheezing - Cardiovascular Heart rate: 80 Rhythm: regular Heart Sounds: Present: S1 & S2 - Extremities Extremities: no ischemia Peripheral Pulses: within normal limits - Abdominal General gastrointestinal: soft, non-tender - Integumentary Integumentary: Present: clear, warm, dry - Psychiatric Psychiatric: appropriate mood/affect - Neurologic Neurologic: CNII-XII intact - Allied Health Allied health notes reviewed: nursing Results - Labs CBC & Chem 7: 02/20/17 07:37 02/20/17 11:30 Labs: Laboratory Last Values WBC 20.5 K/mm3 (4.5-11.0) H 02/19/17 06:08 RBC 4.15 M/mm3 (3.65-5.03) 02/19/17 06:08 Hgb 11.4 gm/dl (10.1-14.3) 02/20/17 07:37 Hct 35.9 % (30.3-42.9) 02/20/17 07:37 MCV 78 fl (79-97) L 02/19/17 06:08 MCH 25 pg (28-32) L 02/19/17 06:08 MCHC 32 % (30-34) 02/19/17 06:08 RDW 14.7 % (13.2-15.2) 02/19/17 06:08 Plt Count 284 K/mm3 (140-440) 02/20/17 07:37 Lymph % (Auto) 20.5 % (13.4-35.0) 02/18/17 03:52 [place] % (Auto) 6.3 % (0.0-7.3) 02/18/17 03:52 Eos % (Auto) 1.5 % (0.0-4.3) 02/18/17 03:52 Baso % (Auto) 0.6 % (0.0-1.8) 02/18/17 03:52 Lymph # Independent Living Specialist 02/19/17 06:08 [place] # 0.8 K/mm3 (0.0-0.8) 02/18/17 03:52 Eos # 0.2 K/mm3 (0.0-0.4) 02/18/17 03:52 Baso # 0.1 K/mm3 (0.0-0.1) 02/18/17 03:52 Add Manual Diff Complete 02/19/17 06:08 Total Counted 100 02/19/17 06:08 Seg Neutrophils % 71.1 % (40.0-70.0) H 02/18/17 03:52 Seg Neuts % (Manual) 82.0 % (40.0-70.0) H 02/19/17 06:08 Band Neutrophils % 0 % 02/19/17 06:08 Lymphocytes % (Manual) 10.0 % (13.4-35.0) L 02/19/17 06:08 Reactive Lymphs % (Man) 0 % 02/19/17 06:08 Monocytes % (Manual) 8.0 % (0.0-7.3) H 02/19/17 06:08 Eosinophils % (Manual) 0 % (0.0-4.3) 02/19/17 06:08 Basophils % (Manual) 0 % (0.0-1.8) 02/19/17 06:08 Metamyelocytes % 0 % 02/19/17 06:08 Myelocytes % 0 % 02/19/17 06:08 Promyelocytes % 0 % 02/19/17 06:08 Blast Cells % 0 % 02/19/17 06:08 Nucleated RBC % Not Reportable 02/19/17 06:08 Seg Neutrophils # 9.1 K/mm3 (1.8-7.7) H 02/18/17 03:52 Seg Neutrophils # Man 16.8 K/mm3 (1.8-7.7) H 02/19/17 06:08 Band Neutrophils # 0.0 K/mm3 02/19/17 06:08 Lymphocytes # (Manual) 2.1 K/mm3 (1.2-5.4) 02/19/17 06:08 Abs React Lymphs (Man) 0.0 K/mm3 02/19/17 06:08 Monocytes # (Manual) 1.6 K/mm3 (0.0-0.8) H 02/19/17 06:08 Eosinophils # (Manual) 0.0 K/mm3 (0.0-0.4) 02/19/17 06:08 Basophils # (Manual) 0.0 K/mm3 (0.0-0.1) 02/19/17 06:08 Metamyelocytes # 0.0 K/mm3 02/19/17 06:08 Myelocytes # 0.0 K/mm3 02/19/17 06:08 Promyelocytes # 0.0 K/mm3 02/19/17 06:08 Blast Cells # 0.0 K/mm3 02/19/17 06:08 WBC Morphology Not Reportable 02/19/17 06:08 Hypersegmented Neuts Not Reportable 02/19/17 06:08 Hyposegmented Neuts Not Reportable 02/19/17 06:08 Hypogranular Neuts Not Reportable 02/19/17 06:08 Smudge Cells Not Reportable 02/19/17 06:08 Toxic Granulation Not Reportable 02/19/17 06:08 Toxic Vacuolation Not Reportable 02/19/17 06:08 Dohle Bodies Not Reportable 02/19/17 06:08 Pelger-Huet Anomaly Not Reportable 02/19/17 06:08 Raquel Rods Not Reportable 02/19/17 06:08 Platelet Estimate Appears normal 02/19/17 06:08 Clumped Platelets Not Reportable 02/19/17 06:08 Plt Clumps, EDTA Not Reportable 02/19/17 06:08 Large Platelets Not Reportable 02/19/17 06:08 Giant Platelets Not Reportable 02/19/17 06:08 Platelet Satelliting Not Reportable 02/19/17 06:08 Plt Morphology Comment Not Reportable 02/19/17 06:08 RBC Morphology Not Reportable 02/19/17 06:08 Dimorphic RBCs Not Reportable 02/19/17 06:08 Polychromasia Not Reportable 02/19/17 06:08 Hypochromasia 1+ 02/19/17 06:08 Poikilocytosis Not Reportable 02/19/17 06:08 Anisocytosis Not Reportable 02/19/17 06:08 Microcytosis Not Reportable 02/19/17 06:08 Macrocytosis Not Reportable 02/19/17 06:08 Spherocytes Not Reportable 02/19/17 06:08 Pappenheimer Bodies Not Reportable 02/19/17 06:08 Sickle Cells Not Reportable 02/19/17 06:08 Target Cells Not Reportable 02/19/17 06:08 Tear Drop Cells Not Reportable 02/19/17 06:08 Ovalocytes Not Reportable 02/19/17 06:08 Helmet Cells Not Reportable 02/19/17 06:08 [place] Bodies Not Reportable 02/19/17 06:08 [place] Rings Not Reportable 02/19/17 06:08 [place] Cells Not Reportable 02/19/17 06:08 Bite Cells Not Reportable 02/19/17 06:08 Crenated Cell Not Reportable 02/19/17 06:08 Elliptocytes Not Reportable 02/19/17 06:08 Acanthocytes (Spur) Not Reportable 02/19/17 06:08 Rouleaux Not Reportable 02/19/17 06:08 Hemoglobin C Crystals Not Reportable 02/19/17 06:08 Schistocytes Not Reportable 02/19/17 06:08 Malaria parasites Not Reportable 02/19/17 06:08 Sachin Bodies Not Reportable 02/19/17 06:08 Hem Pathologist Commnt No 02/19/17 06:08 PT 13.2 Sec. (12.2-14.9) 02/18/17 17:42 INR 1.01 (0.87-1.13) 02/18/17 17:42 APTT 29.6 Sec. (24.2-36.6) 02/18/17 17:42 D-Dimer 370.62 ng/mlDDU (0-234) H 02/18/17 04:43 Heparin Anti-Xa Level 0.61 U.I./ml (0.3-0.7) 02/19/17 06:08 POC ABG pH 7.349 (7.35-7.45) L 02/18/17 04:57 POC ABG pCO2 50.7 (35-45) H 02/18/17 04:57 POC ABG pO2 138 (80-105) H 02/18/17 04:57 POC ABG HCO3 28.0 02/18/17 04:57 POC ABG Total CO2 29 02/18/17 04:57 POC ABG O2 Sat 99 02/18/17 04:57 POC ABG Base Excess 2 02/18/17 04:57 FiO2 50 % 02/18/17 04:57 Sodium 134 mmol/L (137-145) L 02/19/17 06:08 Potassium 3.9 mmol/L (3.6-5.0) 02/19/17 06:08 Chloride 93.1 mmol/L (98-107) L 02/19/17 06:08 Carbon Dioxide 26 mmol/L (22-30) 02/19/17 06:08 Anion Gap 19 mmol/L 02/19/17 06:08 BUN 23 mg/dL (7-17) H 02/19/17 06:08 Creatinine 1.4 mg/dL (0.7-1.2) H 02/19/17 06:08 Estimated GFR 46 ml/min 02/19/17 06:08 BUN/Creatinine Ratio 16.42 % 02/19/17 06:08 Glucose 278 mg/dL (65-100) H 02/19/17 06:08 POC Glucose 275 (70-105) H 02/19/17 21:55 Calcium 8.9 mg/dL (8.4-10.2) 02/19/17 06:08 Total Bilirubin 0.20 mg/dL (0.1-1.2) 02/18/17 03:52 AST 15 units/L (5-40) 02/18/17 03:52 ALT 12 units/L (7-56) 02/18/17 03:52 Alkaline Phosphatase 141 units/L (35-129) H 02/18/17 03:52 Total Creatine Kinase 255 units/L (30-135) H 02/18/17 12:14 CK-MB (CK-2) 15.5 ng/mL (0.0-4.0) H 02/18/17 12:14 CK-MB (CK-2) Rel Index 6.0 (0-4) H 02/18/17 12:14 Troponin T 0.154 ng/mL (0.00-0.029) H* 02/18/17 12:14 NT-Pro-B Natriuret Pep 812.0 pg/mL (0-900) 02/18/17 03:52 Total Protein 7.1 g/dL (6.3-8.2) 02/18/17 03:52 Albumin 3.8 g/dL (3.9-5) L 02/18/17 03:52 Albumin/Globulin Ratio 1.2 % 02/18/17 03:52 Triglycerides 99 mg/dL (2-149) 02/18/17 03:52 Cholesterol 255 mg/dL (50-199) H 02/18/17 03:52 LDL Cholesterol Direct 153 mg/dL (50-130) H 02/18/17 03:52 HDL Cholesterol 83 mg/dL (40-59) H 02/18/17 03:52 Cholesterol/HDL Ratio 3.07 % 02/18/17 03:52 <GAIL LANZA M - Last Filed: 02/20/17 17:28> Assessment and Plan Assessment and plan: I saw and evaluated the patient. I agree with the findings and the plan of care as documented in the Nurse Practitioner's progress note. Hospitalist Physical - Constitutional Vitals: Temp Pulse Resp BP Pulse Ox 98.0 F 78 20 133/67 96 02/20/17 16:16 02/20/17 16:16 02/20/17 16:16 02/20/17 16:16 02/20/17 16:16 Results - Labs CBC & Chem 7: 02/20/17 07:37 02/20/17 11:30 Labs: Laboratory Last Values WBC 20.5 K/mm3 (4.5-11.0) H 02/19/17 06:08 RBC 4.15 M/mm3 (3.65-5.03) 02/19/17 06:08 Hgb 11.4 gm/dl (10.1-14.3) 02/20/17 07:37 Hct 35.9 % (30.3-42.9) 02/20/17 07:37 MCV 78 fl (79-97) L 02/19/17 06:08 MCH 25 pg (28-32) L 02/19/17 06:08 MCHC 32 % (30-34) 02/19/17 06:08 RDW 14.7 % (13.2-15.2) 02/19/17 06:08 Plt Count 284 K/mm3 (140-440) 02/20/17 07:37 Lymph % (Auto) 20.5 % (13.4-35.0) 02/18/17 03:52 [place] % (Auto) 6.3 % (0.0-7.3) 02/18/17 03:52 Eos % (Auto) 1.5 % (0.0-4.3) 02/18/17 03:52 Baso % (Auto) 0.6 % (0.0-1.8) 02/18/17 03:52 Lymph # Independent Living Specialist 02/19/17 06:08 [place] # 0.8 K/mm3 (0.0-0.8) 02/18/17 03:52 Eos # 0.2 K/mm3 (0.0-0.4) 02/18/17 03:52 Baso # 0.1 K/mm3 (0.0-0.1) 02/18/17 03:52 Add Manual Diff Complete 02/19/17 06:08 Total Counted 100 02/19/17 06:08 Seg Neutrophils % 71.1 % (40.0-70.0) H 02/18/17 03:52 Seg Neuts % (Manual) 82.0 % (40.0-70.0) H 02/19/17 06:08 Band Neutrophils % 0 % 02/19/17 06:08 Lymphocytes % (Manual) 10.0 % (13.4-35.0) L 02/19/17 06:08 Reactive Lymphs % (Man) 0 % 02/19/17 06:08 Monocytes % (Manual) 8.0 % (0.0-7.3) H 02/19/17 06:08 Eosinophils % (Manual) 0 % (0.0-4.3) 02/19/17 06:08 Basophils % (Manual) 0 % (0.0-1.8) 02/19/17 06:08 Metamyelocytes % 0 % 02/19/17 06:08 Myelocytes % 0 % 02/19/17 06:08 Promyelocytes % 0 % 02/19/17 06:08 Blast Cells % 0 % 02/19/17 06:08 Nucleated RBC % Not Reportable 02/19/17 06:08 Seg Neutrophils # 9.1 K/mm3 (1.8-7.7) H 02/18/17 03:52 Seg Neutrophils # Man 16.8 K/mm3 (1.8-7.7) H 02/19/17 06:08 Band Neutrophils # 0.0 K/mm3 02/19/17 06:08 Lymphocytes # (Manual) 2.1 K/mm3 (1.2-5.4) 02/19/17 06:08 Abs React Lymphs (Man) 0.0 K/mm3 02/19/17 06:08 Monocytes # (Manual) 1.6 K/mm3 (0.0-0.8) H 02/19/17 06:08 Eosinophils # (Manual) 0.0 K/mm3 (0.0-0.4) 02/19/17 06:08 Basophils # (Manual) 0.0 K/mm3 (0.0-0.1) 02/19/17 06:08 Metamyelocytes # 0.0 K/mm3 02/19/17 06:08 Myelocytes # 0.0 K/mm3 02/19/17 06:08 Promyelocytes # 0.0 K/mm3 02/19/17 06:08 Blast Cells # 0.0 K/mm3 02/19/17 06:08 WBC Morphology Not Reportable 02/19/17 06:08 Hypersegmented Neuts Not Reportable 02/19/17 06:08 Hyposegmented Neuts Not Reportable 02/19/17 06:08 Hypogranular Neuts Not Reportable 02/19/17 06:08 Smudge Cells Not Reportable 02/19/17 06:08 Toxic Granulation Not Reportable 02/19/17 06:08 Toxic Vacuolation Not Reportable 02/19/17 06:08 Dohle Bodies Not Reportable 02/19/17 06:08 Pelger-Huet Anomaly Not Reportable 02/19/17 06:08 Raquel Rods Not Reportable 02/19/17 06:08 Platelet Estimate Appears normal 02/19/17 06:08 Clumped Platelets Not Reportable 02/19/17 06:08 Plt Clumps, EDTA Not Reportable 02/19/17 06:08 Large Platelets Not Reportable 02/19/17 06:08 Giant Platelets Not Reportable 02/19/17 06:08 Platelet Satelliting Not Reportable 02/19/17 06:08 Plt Morphology Comment Not Reportable 02/19/17 06:08 RBC Morphology Not Reportable 02/19/17 06:08 Dimorphic RBCs Not Reportable 02/19/17 06:08 Polychromasia Not Reportable 02/19/17 06:08 Hypochromasia 1+ 02/19/17 06:08 Poikilocytosis Not Reportable 02/19/17 06:08 Anisocytosis Not Reportable 02/19/17 06:08 Microcytosis Not Reportable 02/19/17 06:08 Macrocytosis Not Reportable 02/19/17 06:08 Spherocytes Not Reportable 02/19/17 06:08 Pappenheimer Bodies Not Reportable 02/19/17 06:08 Sickle Cells Not Reportable 02/19/17 06:08 Target Cells Not Reportable 02/19/17 06:08 Tear Drop Cells Not Reportable 02/19/17 06:08 Ovalocytes Not Reportable 02/19/17 06:08 Helmet Cells Not Reportable 02/19/17 06:08 [place] Bodies Not Reportable 02/19/17 06:08 [place] Rings Not Reportable 02/19/17 06:08 [place] Cells Not Reportable 02/19/17 06:08 Bite Cells Not Reportable 02/19/17 06:08 Crenated Cell Not Reportable 02/19/17 06:08 Elliptocytes Not Reportable 02/19/17 06:08 Acanthocytes (Spur) Not Reportable 02/19/17 06:08 Rouleaux Not Reportable 02/19/17 06:08 Hemoglobin C Crystals Not Reportable 02/19/17 06:08 Schistocytes Not Reportable 02/19/17 06:08 Malaria parasites Not Reportable 02/19/17 06:08 [place] Bodies Not Reportable 02/19/17 06:08 Hem Pathologist Commnt No 02/19/17 06:08 PT 13.2 Sec. (12.2-14.9) 02/18/17 17:42 INR 1.01 (0.87-1.13) 02/18/17 17:42 APTT 29.6 Sec. (24.2-36.6) 02/18/17 17:42 D-Dimer 370.62 ng/mlDDU (0-234) H 02/18/17 04:43 Heparin Anti-Xa Level 1.28 U.I./ml (0.3-0.7) H 02/20/17 07:37 POC ABG pH 7.349 (7.35-7.45) L 02/18/17 04:57 POC ABG pCO2 50.7 (35-45) H 02/18/17 04:57 POC ABG pO2 138 (80-105) H 02/18/17 04:57 POC ABG HCO3 28.0 02/18/17 04:57 POC ABG Total CO2 29 02/18/17 04:57 POC ABG O2 Sat 99 02/18/17 04:57 POC ABG Base Excess 2 02/18/17 04:57 FiO2 50 % 02/18/17 04:57 Sodium 131 mmol/L (137-145) L 02/20/17 11:30 Potassium 4.3 mmol/L (3.6-5.0) 02/20/17 11:30 Chloride 93.1 mmol/L (98-107) L 02/20/17 11:30 Carbon Dioxide 22 mmol/L (22-30) 02/20/17 11:30 Anion Gap 20 mmol/L 02/20/17 11:30 BUN 27 mg/dL (7-17) H 02/20/17 11:30 Creatinine 1.3 mg/dL (0.7-1.2) H 02/20/17 11:30 Estimated GFR 51 ml/min 02/20/17 11:30 BUN/Creatinine Ratio 20.76 % 02/20/17 11:30 Glucose 384 mg/dL (65-100) H 02/20/17 11:30 POC Glucose 391 (70-105) H 02/20/17 16:14 Calcium 9.0 mg/dL (8.4-10.2) 02/20/17 11:30 Total Bilirubin 0.20 mg/dL (0.1-1.2) 02/18/17 03:52 AST 15 units/L (5-40) 02/18/17 03:52 ALT 12 units/L (7-56) 02/18/17 03:52 Alkaline Phosphatase 141 units/L (35-129) H 02/18/17 03:52 Total Creatine Kinase 255 units/L (30-135) H 02/18/17 12:14 CK-MB (CK-2) 15.5 ng/mL (0.0-4.0) H 02/18/17 12:14 CK-MB (CK-2) Rel Index 6.0 (0-4) H 02/18/17 12:14 Troponin T 0.154 ng/mL (0.00-0.029) H* 02/18/17 12:14 NT-Pro-B Natriuret Pep 812.0 pg/mL (0-900) 02/18/17 03:52 Total Protein 7.1 g/dL (6.3-8.2) 02/18/17 03:52 Albumin 3.8 g/dL (3.9-5) L 02/18/17 03:52 Albumin/Globulin Ratio 1.2 % 02/18/17 03:52 Triglycerides 99 mg/dL (2-149) 02/18/17 03:52 Cholesterol 255 mg/dL (50-199) H 02/18/17 03:52 LDL Cholesterol Direct 153 mg/dL (50-130) H 02/18/17 03:52 HDL Cholesterol 83 mg/dL (40-59) H 02/18/17 03:52 Cholesterol/HDL Ratio 3.07 % 02/18/17 03:52
[2017-02-20] MEDS: NOVOLOG SUB-Q SCH ×4 (09:05→21:50)
[2017-02-20] MEDS: DUONEB *Not for PRN Use IH SCH ×3 (09:35→20:34)
[2017-02-20] MEDS: LEVAQUIN 750MG/150ML 750 MG/150 ML BAG IV SCH (10:15)
[2017-02-20] MEDS: LOPRESSOR PO SCH ×2 (10:23→21:57)
[2017-02-20] MEDS: ASPIRIN PO SCH (10:23)
[2017-02-20] MEDS: ZESTRIL PO SCH (10:23)
[2017-02-20] MEDS: PLAVIX PO SCH (10:27)
--- NOTE | 2017-02-20 11:53 | Progress Note ---
Assessment and Plan Cont present management.F/U BMP daily. Will plan for coronary angiogram in AM as serum Cr continues to improve. Indications, potential risks and benefits of LHC reviewed with pt and she is agreeable to proceed in AM. Consents obtained. NPO after MN. D/c heparin gtt 4 hours prior to LHC (stop ~0400 in AM). The patient has been seen in conjunction with Dr. Stauffer who agrees with the assessment and plan of care. - Patient Problems (1) Non-STEMI (non-ST elevated myocardial infarction) Current Visit: Yes Status: Acute (2) LV dysfunction Current Visit: Yes Status: Acute (3) Pneumonia Current Visit: Yes Status: Acute Qualifiers: Pneumonia type: P Aspiration pneumonia type: A Laterality: L Lung location: L (4) Hypertension Current Visit: Yes Status: Chronic Qualifiers: Hypertension type: H (5) Hyperlipidemia Current Visit: Yes Status: Chronic Qualifiers: Hyperlipidemia type: H (6) Type 2 diabetes mellitus Current Visit: Yes Status: Chronic Qualifiers: Diabetes mellitus complication status: D Diabetes mellitus complication detail: D Diabetic retinopathy severity: D Proliferative retinopathy type: P Diabetes mellitus macular edema: D Diabetes mellitus intermission coordinator insulin use : D Laterality: L Chronic kidney disease stage: C (7) Acute systolic (congestive) heart failure Current Visit: Yes Status: Acute (8) Acute kidney injury superimposed on chronic kidney disease Current Visit: Yes Status: Acute (9) Elevated troponin Current Visit: Yes Status: Acute Subjective Date of service: 02/20/17 Principal diagnosis: NSTEMI Interval history: no cardiac complaints. VSS. Objective Last Vital Signs Temp 97.6 F 02/20/17 11:44 Pulse 80 02/20/17 11:44 Resp 18 02/20/17 11:44 BP 140/73 02/20/17 11:44 Pulse Ox 97 02/20/17 11:44 - Physical Examination General: No Apparent Distress, Other (Morbidly obese) HEENT: Positive: PERRL, Normocephaly, Mucus Membranes Moist Neck: Positive: neck supple, trachea midline Cardiac: Positive: Reg Rate and Rhythm, S1/S2 Lungs: Positive: clear to auscultation Neuro: Positive: Grossly Intact Abdomen: Positive: Soft, Active Bowel Sounds Skin: Positive: Clear. Negative: Rash Musculoskeletal: No Fluid Collection, No Pain, Normal Range of Motion Extremities: Present: normal, upper extr. pulses, lower extr. pulses - Labs and Meds CBC 02/20/17 Range/Units 07:37 Hgb 11.4 (10.1-14.3) gm/dl Hct 35.9 (30.3-42.9) % Plt Count 284 (140-440) K/mm3 - Imaging and Cardiology EKG: report reviewed, image reviewed - EKG Sinus rhythms and dysrhythmias: sinus rhythm
[2017-02-20 12:10] LABS: BUN/Creatinine Ratio 20.76; Chloride 93.1 mmol/L (98-107); Potassium 4.3 mmol/L (3.6-5.0)
[2017-02-20] MEDS ORDERED: NACL 0.9% 500 ML 500 ML IV SCH (15:00)
[2017-02-20] MEDS: HEPARIN/ 0.45% NACL-25,000 UNIT/500 ML 25,000 UNIT/500 ML BAG IV SCH (17:00)
[2017-02-20] MEDS: LEVEMIR SUB-Q SCH (21:57)
[2017-02-21 05:34] LABS: Basophils % (Auto) 0.2 % (0.0-1.8); Hematocrit 33.5 % (30.3-42.9); Hemoglobin 10.6 gm/dl (10.1-14.3); Mean Corpuscular HGB Conc 32 % (30-34); Mean Corpuscular Volume 79 fl (79-97); Platelet Count 284 K/mm3 (140-440); Red Blood Count 4.23 M/mm3 (3.65-5.03); Red Cell Distribution Width 14.8 % (13.2-15.2); White Blood Count 18.5 K/mm3 (4.5-11.0)
[2017-02-21 05:35] LABS: Mean Corpuscular Hemoglobin 25 pg (28-32)
[2017-02-21 05:38] LABS: INR 1.06 (0.87-1.13)
[2017-02-21 05:49] LABS: BUN/Creatinine Ratio 24.37; Calcium 9.4 mg/dL (8.4-10.2); Chloride 94.1 mmol/L (98-107); Potassium 5.1 mmol/L (3.6-5.0)
[2017-02-21] MEDS ORDERED: ASPIRIN PO ONE (06:00)
[2017-02-21] MEDS ORDERED: PLAVIX PO SCH (06:00)
--- NOTE | 2017-02-21 08:45 | Progress Note ---
Assessment and Plan Assessment and plan: Acute hypoxic respiratory failure Continue O2 for supportive care. BiPAP as clinically indicated. BNP is normal. Elevated troponin. NSTEMI Patient awaiting for coronary angiogram [facility] today Managed By Cardiology echocardiogram shows moderate LV systolic dysfunction LVEF 35 to 40%. Mild MR, No pericardial effusion. Community-acquired pneumonia. Continue pneumonia pathway. Continue IV antibiotics and follow cultures. Sepsis Patient will be placed on the sepsis pathway. Follow-up lactic acid levels. Etiology secondary to above. Acute COPD exacerbation. New diagnosis. Patient with wheezing on exam and 35 pack year smoking history. Patient will need follow-up as an outpatient with PFTs. Start IV steroids/ bronchodilators/nebulizer. Place patient on COPD pathway. Acute renal failure. Etiology is likely secondary to acute kidney injury from sepsis +/-dehydration/ vasomotor nephropathy. Continue IV fluid hydration and follow-up BMP. Serum Cr continues to improve Hypertension. Resume antihypertensives medications. Diabetes mellitus type 2. Continue Accu-Cheks and Sliding scale insulin. Hyperlipidemia. Continue on home antilipid pills Discussed with the patient about the importance of physical exercise, low fat diet, reducing intake of high fat foods to improve cardiovascular diseases. Peripheral vascular disease Patient with diminished DP pulses bilaterally but palpable. Given tobacco abuse history, we will rule out peripheral vascular disease. Check XENA/arterial Dopplers. Consider vascular surgery consultation. Hyperkalimia Given Kayexalate Closely monitory electrolytes Tobacco abuse. Patient has been counseled with tobacco cessation. DVT prophylaxis Heparin drip. History Interval history: Patient has uneventful overnight, she denies chest pain, sob. Hospitalist Physical - Constitutional Vitals: Temp Pulse Resp BP Pulse Ox 98.2 F 74 22 132/84 97 02/21/17 04:00 02/21/17 04:00 02/21/17 04:00 02/21/17 04:00 02/21/17 04:00 General appearance: Present: no acute distress, well-nourished - EENT Eyes: Present: PERRL ENT: hearing intact - Neck Neck: Present: supple - Respiratory Respiratory effort: normal Respiratory: bilateral: CTA - Cardiovascular Heart rate: 77 Rhythm: regular Heart Sounds: Present: S1 & S2 - Extremities Extremities: no ischemia Peripheral Pulses: within normal limits - Abdominal General gastrointestinal: soft, non-tender - Integumentary Integumentary: Present: clear, warm, dry - Psychiatric Psychiatric: appropriate mood/affect - Neurologic Neurologic: CNII-XII intact - Allied Health Allied health notes reviewed: nursing Results - Labs CBC & Chem 7: 02/21/17 05:04 02/21/17 05:04 Labs: Laboratory Last Values WBC 18.5 K/mm3 (4.5-11.0) H 02/21/17 05:04 RBC 4.23 M/mm3 (3.65-5.03) 02/21/17 05:04 Hgb 10.6 gm/dl (10.1-14.3) 02/21/17 05:04 Hct 33.5 % (30.3-42.9) 02/21/17 05:04 MCV 79 fl (79-97) 02/21/17 05:04 MCH 25 pg (28-32) L 02/21/17 05:04 MCHC 32 % (30-34) 02/21/17 05:04 RDW 14.8 % (13.2-15.2) 02/21/17 05:04 Plt Count 284 K/mm3 (140-440) 02/21/17 05:04 Lymph % (Auto) 9.0 % (13.4-35.0) L 02/21/17 05:04 [place] % (Auto) 5.2 % (0.0-7.3) 02/21/17 05:04 Eos % (Auto) 0.0 % (0.0-4.3) 02/21/17 05:04 Baso % (Auto) 0.2 % (0.0-1.8) 02/21/17 05:04 Lymph # 1.7 K/mm3 (1.2-5.4) 02/21/17 05:04 [place] # 1.0 K/mm3 (0.0-0.8) H 02/21/17 05:04 Eos # 0.0 K/mm3 (0.0-0.4) 02/21/17 05:04 Baso # 0.0 K/mm3 (0.0-0.1) 02/21/17 05:04 Add Manual Diff Complete 02/19/17 06:08 Total Counted 100 02/19/17 06:08 Seg Neutrophils % 85.6 % (40.0-70.0) H 02/21/17 05:04 Seg Neuts % (Manual) 82.0 % (40.0-70.0) H 02/19/17 06:08 Band Neutrophils % 0 % 02/19/17 06:08 Lymphocytes % (Manual) 10.0 % (13.4-35.0) L 02/19/17 06:08 Reactive Lymphs % (Man) 0 % 02/19/17 06:08 Monocytes % (Manual) 8.0 % (0.0-7.3) H 02/19/17 06:08 Eosinophils % (Manual) 0 % (0.0-4.3) 02/19/17 06:08 Basophils % (Manual) 0 % (0.0-1.8) 02/19/17 06:08 Metamyelocytes % 0 % 02/19/17 06:08 Myelocytes % 0 % 02/19/17 06:08 Promyelocytes % 0 % 02/19/17 06:08 Blast Cells % 0 % 02/19/17 06:08 Nucleated RBC % Not Reportable 02/19/17 06:08 Seg Neutrophils # 15.8 K/mm3 (1.8-7.7) H 02/21/17 05:04 Seg Neutrophils # Man 16.8 K/mm3 (1.8-7.7) H 02/19/17 06:08 Band Neutrophils # 0.0 K/mm3 02/19/17 06:08 Lymphocytes # (Manual) 2.1 K/mm3 (1.2-5.4) 02/19/17 06:08 Abs React Lymphs (Man) 0.0 K/mm3 02/19/17 06:08 Monocytes # (Manual) 1.6 K/mm3 (0.0-0.8) H 02/19/17 06:08 Eosinophils # (Manual) 0.0 K/mm3 (0.0-0.4) 02/19/17 06:08 Basophils # (Manual) 0.0 K/mm3 (0.0-0.1) 02/19/17 06:08 Metamyelocytes # 0.0 K/mm3 02/19/17 06:08 Myelocytes # 0.0 K/mm3 02/19/17 06:08 Promyelocytes # 0.0 K/mm3 02/19/17 06:08 Blast Cells # 0.0 K/mm3 02/19/17 06:08 WBC Morphology Not Reportable 02/19/17 06:08 Hypersegmented Neuts Not Reportable 02/19/17 06:08 Hyposegmented Neuts Not Reportable 02/19/17 06:08 Hypogranular Neuts Not Reportable 02/19/17 06:08 Smudge Cells Not Reportable 02/19/17 06:08 Toxic Granulation Not Reportable 02/19/17 06:08 Toxic Vacuolation Not Reportable 02/19/17 06:08 Dohle Bodies Not Reportable 02/19/17 06:08 Pelger-Huet Anomaly Not Reportable 02/19/17 06:08 Raquel Rods Not Reportable 02/19/17 06:08 Platelet Estimate Appears normal 02/19/17 06:08 Clumped Platelets Not Reportable 02/19/17 06:08 Plt Clumps, EDTA Not Reportable 02/19/17 06:08 Large Platelets Not Reportable 02/19/17 06:08 Giant Platelets Not Reportable 02/19/17 06:08 Platelet Satelliting Not Reportable 02/19/17 06:08 Plt Morphology Comment Not Reportable 02/19/17 06:08 RBC Morphology Not Reportable 02/19/17 06:08 Dimorphic RBCs Not Reportable 02/19/17 06:08 Polychromasia Not Reportable 02/19/17 06:08 Hypochromasia 1+ 02/19/17 06:08 Poikilocytosis Not Reportable 02/19/17 06:08 Anisocytosis Not Reportable 02/19/17 06:08 Microcytosis Not Reportable 02/19/17 06:08 Macrocytosis Not Reportable 02/19/17 06:08 Spherocytes Not Reportable 02/19/17 06:08 Pappenheimer Bodies Not Reportable 02/19/17 06:08 Sickle Cells Not Reportable 02/19/17 06:08 Target Cells Not Reportable 02/19/17 06:08 Tear Drop Cells Not Reportable 02/19/17 06:08 Ovalocytes Not Reportable 02/19/17 06:08 Helmet Cells Not Reportable 02/19/17 06:08 [place] Bodies Not Reportable 02/19/17 06:08 [place] Rings Not Reportable 02/19/17 06:08 [place] Cells Not Reportable 02/19/17 06:08 Bite Cells Not Reportable 02/19/17 06:08 Crenated Cell Not Reportable 02/19/17 06:08 Elliptocytes Not Reportable 02/19/17 06:08 Acanthocytes (Spur) Not Reportable 02/19/17 06:08 Rouleaux Not Reportable 02/19/17 06:08 Hemoglobin C Crystals Not Reportable 02/19/17 06:08 Schistocytes Not Reportable 02/19/17 06:08 Malaria parasites Not Reportable 02/19/17 06:08 Sachin Bodies Not Reportable 02/19/17 06:08 Hem Pathologist Commnt No 02/19/17 06:08 PT 13.7 Sec. (12.2-14.9) 02/21/17 05:04 INR 1.06 (0.87-1.13) 02/21/17 05:04 APTT 29.6 Sec. (24.2-36.6) 02/18/17 17:42 D-Dimer 370.62 ng/mlDDU (0-234) H 02/18/17 04:43 Heparin Anti-Xa Level 0.15 U.I./ml (0.3-0.7) L 02/20/17 17:47 POC ABG pH 7.349 (7.35-7.45) L 02/18/17 04:57 POC ABG pCO2 50.7 (35-45) H 02/18/17 04:57 POC ABG pO2 138 (80-105) H 02/18/17 04:57 POC ABG HCO3 28.0 02/18/17 04:57 POC ABG Total CO2 29 02/18/17 04:57 POC ABG O2 Sat 99 02/18/17 04:57 POC ABG Base Excess 2 02/18/17 04:57 FiO2 50 % 02/18/17 04:57 Sodium 135 mmol/L (137-145) L 02/21/17 05:04 Potassium 5.1 mmol/L (3.6-5.0) H 02/21/17 05:04 Chloride 94.1 mmol/L (98-107) L 02/21/17 05:04 Carbon Dioxide 24 mmol/L (22-30) 02/21/17 05:04 Anion Gap 22 mmol/L 02/21/17 05:04 BUN 39 mg/dL (7-17) H 02/21/17 05:04 Creatinine 1.6 mg/dL (0.7-1.2) H 02/21/17 05:04 Estimated GFR 40 ml/min 02/21/17 05:04 BUN/Creatinine Ratio 24.37 % 02/21/17 05:04 Glucose 362 mg/dL (65-100) H 02/21/17 05:04 POC Glucose 362 (70-105) H 02/20/17 21:39 Calcium 9.4 mg/dL (8.4-10.2) 02/21/17 05:04 Total Bilirubin 0.20 mg/dL (0.1-1.2) 02/18/17 03:52 AST 15 units/L (5-40) 02/18/17 03:52 ALT 12 units/L (7-56) 02/18/17 03:52 Alkaline Phosphatase 141 units/L (35-129) H 02/18/17 03:52 Total Creatine Kinase 255 units/L (30-135) H 02/18/17 12:14 CK-MB (CK-2) 15.5 ng/mL (0.0-4.0) H 02/18/17 12:14 CK-MB (CK-2) Rel Index 6.0 (0-4) H 02/18/17 12:14 Troponin T 0.154 ng/mL (0.00-0.029) H* 02/18/17 12:14 NT-Pro-B Natriuret Pep 812.0 pg/mL (0-900) 02/18/17 03:52 Total Protein 7.1 g/dL (6.3-8.2) 02/18/17 03:52 Albumin 3.8 g/dL (3.9-5) L 02/18/17 03:52 Albumin/Globulin Ratio 1.2 % 02/18/17 03:52 Triglycerides 99 mg/dL (2-149) 02/18/17 03:52 Cholesterol 255 mg/dL (50-199) H 02/18/17 03:52 LDL Cholesterol Direct 153 mg/dL (50-130) H 02/18/17 03:52 HDL Cholesterol 83 mg/dL (40-59) H 02/18/17 03:52 Cholesterol/HDL Ratio 3.07 % 02/18/17 03:52
[2017-02-21] MEDS: NOVOLOG SUB-Q SCH ×2 (09:35→13:57)
[2017-02-21] MEDS: DUONEB *Not for PRN Use IH SCH ×2 (09:54→17:08)
[2017-02-21] MEDS ORDERED: NACL 0.9% 250ML 250 ML IV ONE (10:00)
[2017-02-21] MEDS ORDERED: NACL 0.9% 1000 ML 1,000 ML IV SCH (10:30)
--- NOTE | 2017-02-21 10:44 | Vascular Lab Report ---
LOWER EXTREMITY ARTERIAL DUPLEX: REASON FOR EXAM: Peripheral arterial disease. COMMENTS ON THE RIGHT: Triphasic waveforms are seen proximally. Monophasic waveforms are seen distally. No significant velocity gradients are identified. Scattered plaque noted throughout vessels.. Findings are consistent with abnormal perfusion. Findings are inconclusive with the ability to heal distal wounds. COMMENTS ON THE LEFT: Triphasic waveforms are seen proximally. Monophasic waveforms are seen distally. No significant velocity gradients are identified. Diffuse plaque noted throughout the vessels. Findings are consistent with abnormal perfusion. Findings are inconclusive with the ability to heal distal wounds. IMPRESSION: RIGHT: Diffuse peripheral arterial disease without identifiable stenosis.. LEFT:Diffuse arterial disease without identifiable stenosis.
[2017-02-21] MEDS ORDERED: VERSED ONE (11:17)
[2017-02-21] MEDS ORDERED: HEPARIN/NS 5000 UNIT/500ML(CATH LAB) 1,000 ML IR ONE (11:17)
[2017-02-21] MEDS ORDERED: XYLOCAINE 2% INFILTRATI ONE (11:17)
[2017-02-21] MEDS ORDERED: SUBLIMAZE ONE (11:17)
[2017-02-21] MEDS ORDERED: CALAN ONE (11:19)
[2017-02-21] MEDS ORDERED: HEPARIN 10,000 UNITS/10 ML ONE (11:19)
[2017-02-21] MEDS ORDERED: NITROGLYCERIN SYRINGE 3 ML ONE (11:25)
--- NOTE | 2017-02-21 12:15 | Progress Note ---
Assessment and Plan acute systolic heart failure NSTEMI acute renal failure acute respiratory failure moribid obesity htn dm chol rec : in view of cad, transfer to [place] under dr cline for bypass and stop plavix and add imdur and hydralzine, no katarzyna or arb secondary to renal insufficency and cont lopressor and statin and asa. Subjective Date of service: 02/21/17 Principal diagnosis: NSTEMI Interval history: pt sob is better and no chest pain today Objective Vital Signs Temp Pulse Pulse Resp Resp BP Pulse Ox 02/21/17 10:38 98.0 F 77 23 144/76 97 02/21/17 08:00 97.5 F L 80 20 153/88 02/21/17 04:00 98.2 F 74 22 132/84 97 02/21/17 00:00 98.0 F 68 21 132/67 98 02/20/17 20:45 83 20 02/20/17 20:38 20 02/20/17 20:37 97 02/20/17 20:36 80 20 02/20/17 20:00 97.9 F 84 20 136/85 99 02/20/17 16:50 88 20 02/20/17 16:35 90 18 02/20/17 16:16 98.0 F 78 20 133/67 96 - Physical Examination General: No Apparent Distress, Other (Morbidly obese) HEENT: Positive: PERRL, Normocephaly, Mucus Membranes Moist Neck: Positive: neck supple, trachea midline Cardiac: Positive: Reg Rate and Rhythm Lungs: Positive: clear to auscultation Neuro: Positive: Grossly Intact Abdomen: Positive: Soft, Active Bowel Sounds Skin: Positive: Clear. Negative: Rash Musculoskeletal: No Fluid Collection, No Pain, Normal Range of Motion Extremities: Present: normal, upper extr. pulses, lower extr. pulses - Labs and Meds Coagulation 02/21/17 Range/Units 05:04 PT 13.7 (12.2-14.9) Sec. INR 1.06 (0.87-1.13) CBC 02/21/17 Range/Units 05:04 WBC 18.5 H (4.5-11.0) K/mm3 RBC 4.23 (3.65-5.03) M/mm3 Hgb 10.6 (10.1-14.3) gm/dl Hct 33.5 (30.3-42.9) % Plt Count 284 (140-440) K/mm3 Lymph # 1.7 (1.2-5.4) K/mm3 [place] # 1.0 H (0.0-0.8) K/mm3 Eos # 0.0 (0.0-0.4) K/mm3 Baso # 0.0 (0.0-0.1) K/mm3 Comprehensive Metabolic Panel 02/21/17 Range/Units 05:04 Sodium 135 L (137-145) mmol/L Potassium 5.1 H (3.6-5.0) mmol/L Chloride 94.1 L (98-107) mmol/L Carbon Dioxide 24 (22-30) mmol/L BUN 39 H (7-17) mg/dL Creatinine 1.6 H (0.7-1.2) mg/dL Glucose 362 H (65-100) mg/dL Calcium 9.4 (8.4-10.2) mg/dL - Imaging and Cardiology EKG: report reviewed, image reviewed Echo: report reviewed (ef 35-40%) Cardiac cath: report reviewed (lt main 30%, lad mid 80%, lcx mid 95%, rca distal 99% small vessel diease and ef 40%) - Telemetry EKG Rhythm: Sinus Rhythm - EKG Sinus rhythms and dysrhythmias: sinus rhythm
[2017-02-21] MEDS: LEVAQUIN 750MG/150ML 750 MG/150 ML BAG IV SCH (13:41)
[2017-02-21] MEDS: LOPRESSOR PO SCH (13:45)
[2017-02-21 15:35] VITALS: BP 122/78
--- NOTE | 2017-02-21 16:05 | Discharge Summary ---
Providers - Providers Date of Admission: 02/18/17 06:14 Attending physician: GAIL LANZA MD 02/21/17 12:10 Consult to Cardiac Rehabilitation [CONS] Routine Reason For Exam: Cardiac Rehab Evaluation Hospitalization Condition: Fair Disposition: DC-30 STILL A PATIENT Exam - Constitutional Vitals: Temp Pulse Resp BP Pulse Ox 97.2 F L 84 20 122/78 98 02/21/17 14:33 02/21/17 14:33 02/21/17 14:33 02/21/17 14:33 02/21/17 14:33 Plan Follow up with: SHANEKA GRAVES DO [Other] - 3-5 Days
--- NOTE | 2017-02-21 20:09 | Cardiac Catherization Report ---
LEFT HEART CATHETERIZATION CLINICAL INFORMATION: This is a 61-year-old -[place] female with hypertension, diabetes, cholesterol, smoker, obesity, presents with acute shortness of breath with diaphoresis with non-ST elevation VA. The patient was pretreated with Plavix bolus and is on aspirin and the patient has renal insufficiency, IV fluids prior to the procedure. PROCEDURE DETAILS: Left heart catheterization performed via the right radial artery, sterile technique, local anesthesia, 6-Iranian radial sheath inserted. Left system was engaged with a JL3.5 catheter. FINDINGS: There is catheter dampening, so left main is a small caliber vessel, has diffuse 30% disease, bifurcates into a small LAD, diffuse disease with focal area of 80% of ____ vessel, small diagonals 1 and 2, 1.5 vessel, diffusely diseased. Circumflex and AV groove is a small caliber vessel 2.0. Mid has a 95% lesion, bifurcates into a small 2.0 OM1 that has an 80% lesion. Distal circumflex, small caliber 1.5 vessel diffusely diseased. RCA is a dominant vessel, but small caliber, mid 50% distal 99% with TOMÁS-2 flow going into a small caliber PDA, PLV of 1.5 vessels. LV gram shows mild to moderate LV dysfunction, EF around 40%. LVEDP of 35 mmHg, LV is 161/35. Aortic is 161/77. No gradient across the aortic valve on pullback. 5-Iranian catheters were taken over a guidewire, 6-Iranian radial sheath was discontinued. Radial dressing applied. No hematoma. No bleeding. SUMMARY: Significant 3-vessel disease; left main 30%; LAD, small caliber 80%; circumflex mid 95% and 2.0 vessel circumflex; and RCA distal 99% with TOM[place]S-2 flow; small caliber PDA. The patient will be referred to possible bypass surgery. Discussed this in detail with the patient. JOB# [id number] ROSA/HORACE
[2017-02-22] MEDS ORDERED: ASPIRIN PO SCH (10:00)
[2017-02-22] MEDS ORDERED: PLAVIX PO SCH (10:00)
== END 2017-02-21 17:04 | disposition short-term general hospital (02) | DRG 871 ==
LOC: ED 03:30 → 4A 06:14
PROVIDERS: ADMIT Internal Medicine; ATTEND Internal Medicine
PROC: 5A09357 Assistance with Respiratory Ventilation, Less than 24 Consecutive Hours, Continuous Positive Airway Pressure (ICD-10-PCS; principal; 2017-02-18)
PROC: 4A033R1 Measurement of Arterial Saturation, Peripheral, Percutaneous Approach (ICD-10-PCS; 2017-02-18)
PROC: 4A023N7 Measurement of Cardiac Sampling and Pressure, Left Heart, Percutaneous Approach (ICD-10-PCS; 2017-02-21)
DX: A41.9 Sepsis, unspecified organism (principal); J18.9 Pneumonia, unspecified organism; I21.4 Non-ST elevation (NSTEMI) myocardial infarction; J96.01 Acute respiratory failure with hypoxia; I50.21 Acute systolic (congestive) heart failure; N17.9 Acute kidney failure, unspecified; E87.1 Hypo-osmolality and hyponatremia; J44.1 Chronic obstructive pulmonary disease with (acute) exacerbation; I13.0 Hypertensive heart and chronic kidney disease with heart failure and stage 1 through stage 4 chronic kidney disease, or unspecified chronic kidney disease; Z68.42 Body mass index [BMI] 45.0-49.9, adult; E78.5 Hyperlipidemia, unspecified; E11.65 Type 2 diabetes mellitus with hyperglycemia; F17.210 Nicotine dependence, cigarettes, uncomplicated; N18.9 Chronic kidney disease, unspecified; E11.51 Type 2 diabetes mellitus with diabetic peripheral angiopathy without gangrene; E11.22 Type 2 diabetes mellitus with diabetic chronic kidney disease; E87.5 Hyperkalemia; E66.01 Morbid (severe) obesity due to excess calories; Z91.14 Patient's other noncompliance with medication regimen; Z98.890 Other specified postprocedural states; Z71.6 Tobacco abuse counseling; Z82.49 Family history of ischemic heart disease and other diseases of the circulatory system
CPT/HCPCS: 36415; 71010; 78582; 80048; 80053; 80061; 82550; 82553; 82803; 82962; 83880; 84484; 85007; 85014; 85018; 85025; 85049; 85379; 85520; 85610; 85730; 93005; 93010; 93306; 93458; 93925; 94640; 94760; 96372; 96374; 96375; A9270-GY; A9540; A9558; C1894; J1644; J1650; J1815; J1818; J1940; J1956; J2250; J2920; J3010; J7040; Q9967

== ENCOUNTER 2017-04-05 13:23 | Inpatient (IN) | payer SELFPAY ==
[2017-04-05 14:58] LABS: Hematocrit 24.5 % (30.3-42.9); Hemoglobin 7.4 gm/dl (10.1-14.3); Mean Corpuscular HGB Conc 30 % (30-34); Mean Corpuscular Volume 74 fl (79-97); Platelet Count 501 K/mm3 (140-440); Red Blood Count 3.32 M/mm3 (3.65-5.03); Red Cell Distribution Width 17.8 % (13.2-15.2)
[2017-04-05 15:02] LABS: INR 1.11 (0.87-1.13); Mean Corpuscular Hemoglobin 22 pg (28-32); White Blood Count 21.6 K/mm3 (4.5-11.0)
[2017-04-05 15:03] LABS: Partial Thromboplastin Time 31.7 Sec. (24.2-36.6)
--- NOTE | 2017-04-05 15:18 | XRay Report ---
ROUTINE CHEST, TWO VIEWS: HISTORY: Dyspnea. Heart size is borderline. Previous CABG changes are suspected. Mild vascular congestion and small pleural effusions are identified. Fluid in the minor fissure is also noted. No consolidation or pneumothorax. IMPRESSION: Mild CHF.
[2017-04-05 15:21] LABS: Anion Gap 20 mmol/L; Blood Urea Nitrogen 12 mg/dL (7-17); Calcium 9.2 mg/dL (8.4-10.2); Carbon Dioxide 23 mmol/L (22-30); Glucose 147 mg/dL (65-100); Potassium 4.4 mmol/L (3.6-5.0); Sodium 136 mmol/L (137-145)
[2017-04-05 15:48] LABS: Basophils % (Manual) 0 % (0.0-1.8); Blastocytes % (Manual) 0 %
[2017-04-05 15:50] LABS: Hypochromasia 1+; Platelet Clumps Rare; Platelet Estimate Consistent w Auto
[2017-04-05 15:51] LABS: Anisocytosis 1+; Elliptocytes Few; Ovalocytes Few; Polychromasia Few; Tear Drop Cells Rare
[2017-04-05 15:52] LABS: Diff Status Complete
[2017-04-06] MEDS ORDERED: ZOSYN/NS 4.5GM/100ML 4.5 GM/100 ML VIAL IV ONE (01:52)
[2017-04-06] MEDS ORDERED: ZOFRAN IV ONE (01:52)
[2017-04-06] MEDS ORDERED: DILAUDID IV ONE (01:52)
[2017-04-06] MEDS ORDERED: VANCOMYCIN/NS 1 GM/250 ML 1 GM/250 ML BAG IV ONE (01:52)
--- NOTE | 2017-04-06 01:59 | Emergency Department Report ---
ED Shortness of Breath HPI - General Chief Complaint: Dyspnea/Respdistress Stated Complaint: SOB,OPEN HEART SURGERY IN FEBRUARY Time Seen by Provider: 04/06/17 01:37 Source: patient Mode of arrival: Ambulatory Limitations: No Limitations - History of Present Illness Initial Comments: 61-year-old female with a past smoker history diabetes, hypertension, triple bypass performed on March 04 at [facility] presents to the hospital complaining of worsening shortness of breath, elevated sugars, and some chest pain. Patient states he felt really good after receiving a bypass surgery but symptoms began to worsen 5 days ago. Positive increased shortness of breath, dyspnea on exertion, patient states when using her incentive spirometer she can only blow out 500 and she was blowing 750-1000 prior to dyspnea. Patient knows PERRLA drainage from sternotomy wound several days ago and thinks that her bra might have irritated her wound. No reports of fever. This complains of mild mid chest soreness and left-sided neck soreness extending into the shoulder - Related Data Home Medications Medication Instructions Recorded Confirmed Last Taken Glipizide/Metformin HCl 1 each PO DAILY 02/19/17 02/19/17 5 Months Ago [glipiZIDE-Metformin 2.5-250 mg] Insulin Glargine [Lantus VIAL] 60 units SQ QHS 02/19/17 02/19/17 5 Months Ago Insulin Lispro [Humalog] 18 unit SQ AC 02/19/17 02/19/17 5 Months Ago Simvastatin [Zocor TAB] 20 mg PO QHS 02/19/17 02/19/17 5 Months Ago Allergies Allergy/AdvReac Type Severity Reaction Status Date / Time No Known Allergies Allergy Verified 02/18/17 03:33 ED Review of Systems ROS: Stated complaint: SOB,OPEN HEART SURGERY IN FEBRUARY Other details as noted in HPI Comment: All other systems reviewed and negative Other: Constitutional: No fevers chills Eyes: No eye pain visual changes ENT: No ear pain or throat pain Neck: Denies pain Respiratory: Denies cough wheezing Cardiovascular: Denies palpitations, syncope GI: Denies abdominal pain, nausea, vomiting, diarrhea : Denies dysuria Musculoskeletal: Denies back pain Skin: Denies rash, lesions, erythema Neurologic: Denies headache, numbness, weakness Psychiatric: Denies suicidal ideation ED Past Medical Hx - Past Medical History Previous Medical History?: Yes Hx Hypertension: Yes Hx Congestive Heart Failure: No Hx Diabetes: Yes Hx Asthma: No Hx COPD: No - Surgical History Past Surgical History?: Yes Hx Open Heart Surgery: Yes (triple bypass 03/08) Additional Surgical History: left eye retina - Social History Smoking Status: Former Smoker Substance Use Type: Alcohol - Medications Home Medications: Home Medications Medication Instructions Recorded Confirmed Last Taken Type Glipizide/Metformin HCl 1 each PO DAILY 02/19/17 02/19/17 5 Months Ago History [glipiZIDE-Metformin 2.5-250 mg] Insulin Glargine [Lantus VIAL] 60 units SQ QHS 02/19/17 02/19/17 5 Months Ago History Insulin Lispro [Humalog] 18 unit SQ AC 02/19/17 02/19/17 5 Months Ago History Simvastatin [Zocor TAB] 20 mg PO QHS 02/19/17 02/19/17 5 Months Ago History ED Physical Exam - General Limitations: No Limitations - Other Other exam information: General: No limitations, patient is alert in no acute distress Head exam: Atraumatic, normocephalic Eyes exam: Normal appearance ENT: Moist mucous membrane Neck exam: Normal inspection, full range of motion, no meningismus nontender Respiratory exam: Mild crackles at the bases, no wheezes, no rales. Sternotomy scar examined. Positive sutures still in place. Positive wound dehiscence in the lower wound margin with purulent malodorous drainage Cardiovascular: Mild tachycardia, regular rate Abdomen: Soft, nondistended, and nontender, with normal bowel sounds, no rebound, or guarding Extremity: Full range of motion normal inspection no deformity, mild bilateral edema chronic as per patient Back: Normal Inspection, full range of motion, no tenderness Neurologic: Alert, oriented x3, cranial nerves intact, no motor or sensory deficit Psychiatric: normal affect, normal mood Skin: Warm, dry, intact ED Course Vital Signs 04/05/17 04/06/17 14:16 01:03 Temperature 98.6 F 98.1 F Pulse Rate 109 H 113 H Respiratory 20 12 Rate Blood Pressure 156/76 156/83 O2 Sat by Pulse 98 100 Oximetry - Reevaluation(s) Reevaluation #1: 04/06/17 02:14 Pain medicine, nausea medication provided. Patient cultured, type and screen ordered. Vanc and Zosyn ordered for wound infection. - Consultations Consultation #1: 04/06/17 02:[address] Edilia Owens bone density technician art psychotherapist or therapist with [facility]. Agrees with admission here. ED Medical Decision Making - Lab Data Result diagrams: 04/05/17 14:31 04/05/17 14:31 Lab Results 04/05/17 04/05/17 04/05/17 Range/Units 14:31 14:31 14:31 WBC 21.6 H (4.5-11.0) K/mm3 RBC 3.32 L (3.65-5.03) M/mm3 Hgb 7.4 L (10.1-14.3) gm/dl Hct 24.5 L (30.3-42.9) % MCV 74 L (79-97) fl MCH 22 L (28-32) pg MCHC 30 (30-34) % RDW 17.8 H (13.2-15.2) % Plt Count 501 H (140-440) K/mm3 Lymph % (Auto) [employer] [place] % (Auto) Rn School Eos % (Auto) Rn [employer] Baso % (Auto) Rn [employer] Lymph # [employer] [place] # Rn School Eos # Rn School Baso # Rn School Add Manual Diff Complete Total Counted 100 Seg Neutrophils % Rn School Seg Neuts % (Manual) 84.0 H (40.0-70.0) % Band Neutrophils % 0 % Lymphocytes % (Manual) 6.0 L (13.4-35.0) % Reactive Lymphs % (Man) 0 % Monocytes % (Manual) 9.0 H (0.0-7.3) % Eosinophils % (Manual) 1.0 (0.0-4.3) % Basophils % (Manual) 0 (0.0-1.8) % Metamyelocytes % 0 % Myelocytes % 0 % Promyelocytes % 0 % Blast Cells % 0 % Nucleated RBC % Not Reportable Seg Neutrophils # Rn School Seg Neutrophils # Man 18.1 H (1.8-7.7) K/mm3 Band Neutrophils # 0.0 K/mm3 Lymphocytes # (Manual) 1.3 (1.2-5.4) K/mm3 Abs React Lymphs (Man) 0.0 K/mm3 Monocytes # (Manual) 1.9 H (0.0-0.8) K/mm3 Eosinophils # (Manual) 0.2 (0.0-0.4) K/mm3 Basophils # (Manual) 0.0 (0.0-0.1) K/mm3 Metamyelocytes # 0.0 K/mm3 Myelocytes # 0.0 K/mm3 Promyelocytes # 0.0 K/mm3 Blast Cells # 0.0 K/mm3 WBC Morphology Not Reportable Hypersegmented Neuts Not Reportable Hyposegmented Neuts Not Reportable Hypogranular Neuts Not Reportable Smudge Cells Not Reportable Toxic Granulation Not Reportable Toxic Vacuolation Not Reportable Dohle Bodies Not Reportable Pelger-Huet Anomaly Not Reportable Raquel Rods Not Reportable Platelet Estimate Consistent w auto Clumped Platelets Rare Plt Clumps, EDTA Not Reportable Large Platelets Not Reportable Giant Platelets Not Reportable Platelet Satelliting Not Reportable Plt Morphology Comment Not Reportable RBC Morphology Not Reportable Dimorphic RBCs Not Reportable Polychromasia Few Hypochromasia 1+ Poikilocytosis Not Reportable Anisocytosis 1+ Microcytosis Not Reportable Macrocytosis Not Reportable Spherocytes Not Reportable Pappenheimer Bodies Not Reportable Sickle Cells Not Reportable Target Cells Not Reportable Tear Drop Cells Rare Ovalocytes Few Helmet Cells Not Reportable Arreola-[place] Bodies Not Reportable Theodore Rings Not Reportable [place] Cells Not Reportable Bite Cells Not Reportable Crenated Cell Not Reportable Elliptocytes Few Acanthocytes (Spur) Not Reportable Rouleaux Not Reportable Hemoglobin C Crystals Not Reportable Schistocytes Not Reportable Malaria parasites Not Reportable Sachin Bodies Not Reportable Hem Pathologist Commnt No PT 14.9 (12.2-14.9) Sec. INR 1.11 (0.87-1.13) APTT 31.7 (24.2-36.6) Sec. Sodium 136 L (137-145) mmol/L Potassium 4.4 (3.6-5.0) mmol/L Chloride 97.0 L (98-107) mmol/L Carbon Dioxide 23 (22-30) mmol/L Anion Gap 20 mmol/L BUN 12 (7-17) mg/dL Creatinine 1.1 (0.7-1.2) mg/dL Estimated GFR > 60 ml/min BUN/Creatinine Ratio 10.90 % Glucose 147 H (65-100) mg/dL POC Glucose (70-105) Calcium 9.2 (8.4-10.2) mg/dL Troponin T < 0.010 (0.00-0.029) ng/mL 04/05/17 04/05/17 04/05/17 Range/Units 14:33 16:40 20:31 WBC (4.5-11.0) K/mm3 RBC (3.65-5.03) M/mm3 Hgb (10.1-14.3) gm/dl Hct (30.3-42.9) % MCV (79-97) fl MCH (28-32) pg MCHC (30-34) % RDW (13.2-15.2) % Plt Count (140-440) K/mm3 Lymph % (Auto) [place] % (Auto) Eos % (Auto) Baso % (Auto) Lymph # [place] # Eos # Baso # Add Manual Diff Total Counted Seg Neutrophils % Seg Neuts % (Manual) (40.0-70.0) % Band Neutrophils % % Lymphocytes % (Manual) (13.4-35.0) % Reactive Lymphs % (Man) % Monocytes % (Manual) (0.0-7.3) % Eosinophils % (Manual) (0.0-4.3) % Basophils % (Manual) (0.0-1.8) % Metamyelocytes % % Myelocytes % % Promyelocytes % % Blast Cells % % Nucleated RBC % Seg Neutrophils # Seg Neutrophils # Man (1.8-7.7) K/mm3 Band Neutrophils # K/mm3 Lymphocytes # (Manual) (1.2-5.4) K/mm3 Abs React Lymphs (Man) K/mm3 Monocytes # (Manual) (0.0-0.8) K/mm3 Eosinophils # (Manual) (0.0-0.4) K/mm3 Basophils # (Manual) (0.0-0.1) K/mm3 Metamyelocytes # K/mm3 Myelocytes # K/mm3 Promyelocytes # K/mm3 Blast Cells # K/mm3 WBC Morphology Hypersegmented Neuts Hyposegmented Neuts Hypogranular Neuts Smudge Cells Toxic Granulation Toxic Vacuolation Dohle Bodies Pelger-Huet Anomaly Raquel Rods Platelet Estimate Clumped Platelets Plt Clumps, EDTA Large Platelets Giant Platelets Platelet Satelliting Plt Morphology Comment RBC Morphology Dimorphic RBCs Polychromasia Hypochromasia Poikilocytosis Anisocytosis Microcytosis Macrocytosis Spherocytes Pappenheimer Bodies Sickle Cells Target Cells Tear Drop Cells Ovalocytes Helmet Cells Arreola-[place] Bodies Theodore Rings [place] Cells Bite Cells Crenated Cell Elliptocytes Acanthocytes (Spur) Rouleaux Hemoglobin C Crystals Schistocytes Malaria parasites Sachin Bodies Hem Pathologist Commnt PT (12.2-14.9) Sec. INR (0.87-1.13) APTT (24.2-36.6) Sec. Sodium (137-145) mmol/L Potassium (3.6-5.0) mmol/L Chloride (98-107) mmol/L Carbon Dioxide (22-30) mmol/L Anion Gap mmol/L BUN (7-17) mg/dL Creatinine (0.7-1.2) mg/dL Estimated GFR ml/min BUN/Creatinine Ratio % Glucose (65-100) mg/dL POC Glucose 185 H (70-105) Calcium (8.4-10.2) mg/dL Troponin T < 0.010 < 0.010 (0.00-0.029) ng/mL - EKG Data -: EKG Interpreted by Me (sinust tahc 110, lat t wav inv) - EKG Data When compared to previous EKG there are: previous EKG unavailable - Medical Decision Making blood culture, wound culture, type and screen, PT INR pending. Patient requires admission for sternotomy infection status post CABG as well as CHF exacerbation with shortness of breath. Treatment initiated in the ED. Cardiology and hospitalist informed - Differential Diagnosis CHF, wound infection, [place], unstable angina Critical Care Time: No Critical care attestation.: If time is entered above; I have spent that time in minutes in the direct care of this critically ill patient, excluding procedure time. ED Disposition Clinical Impression: Infected sternotomy closure wire, S/P CABG x 3, CHF exacerbation, Leukocytosis , Anemia Disposition: OP ADMIT IP TO THIS HOSP Is pt being admited?: Yes Condition: Stable Time of Disposition: 02:18 (Dr Carey/hosp)
[2017-04-06 02:56] LABS: INR 1.17 (0.87-1.13)
[2017-04-06 02:57] LABS: Partial Thromboplastin Time 30.1 Sec. (24.2-36.6)
[2017-04-06] MEDS ORDERED: MORPHINE IV PRN (08:52)
[2017-04-06] MEDS ORDERED: ZOFRAN IM PRN (08:52)
--- NOTE | 2017-04-06 08:56 | History and Physical Report ---
<SAJAN CORONADO - Last Filed: 04/06/17 15:39> History of Present Illness Date of examination: 04/06/17 Date of admission: 04/06/2017 Chief complaint: infected History of present illness: Patient is a 61-year-old black female with a past medical history diabetes, hypertension, triple bypass performed on March 04 at [facility], who presents to the hospital complaining of worsening shortness of breath, elevated sugars and d left-sided neck soreness extending into the shoulder. Patient states she felt good after having a bypass surgery but symptoms began to worsen 7 days ago. Just over 7 days ago the patient was at her normal baseline state of health. Now she has had progressive worsening of his dyspnea on exertion (PEREZ) to where she cannot walk across a room or talk while sitting up without becoming short of breath; she has never had anything like this before. Patient has stenotomy wound with purulent drainage. patient denies fever, chillis, nausea, vomiting or diarrhea. Past History Past Medical History: diabetes, hypertension Past Surgical History: CABG (triple bypass performed on March 04 at [facility] ), Other Social history: Lives alone. denies: smoking, alcohol abuse, prescription drug abuse Family history: CAD, hypertension Medications and Allergies Allergies Allergy/AdvReac Type Severity Reaction Status Date / Time No Known Allergies Allergy Verified 02/18/17 03:33 Home Medications Medication Instructions Recorded Confirmed Last Taken Type Glipizide/Metformin HCl 1 each PO DAILY 02/19/17 04/06/17 5 Months Ago History [glipiZIDE-Metformin 2.5-250 mg] Insulin Glargine [Lantus VIAL] 60 units SQ QHS 02/19/17 04/06/17 5 Months Ago History Insulin Lispro [Humalog] 18 unit SQ AC 02/19/17 04/06/17 5 Months Ago History Simvastatin [Zocor TAB] 20 mg PO QHS 02/19/17 04/06/17 5 Months Ago History Active Meds: Active Medications Piperacillin Sod/Tazobactam Sod (Zosyn/Ns 3.375gm/50ml) 3.375 gm in 50 mls @ 100 mls/hr IV Q6HR TIA Sodium Chloride (Nacl 0.9% 1000 Ml) 1,000 mls @ 100 mls/hr IV DIRECT TIA Miscellaneous Medication (Glipizide/Metformin Hcl [Glipizide-Metformin 2.5-250 Mg]) 1 each PO DAILY [facility] Miscellaneous Medication (Insulin Glargine) 60 units SQ QHS [facility] Miscellaneous Medication (Insulin Lispro [Humalog Vial]) 18 unit SQ AC [facility] Morphine Sulfate (Morphine) 2 mg IV Q4H PRN PRN Reason: Pain, Moderate (4-6) Ondansetron HCl (Zofran) 4 mg IM Q4H PRN PRN Reason: Nausea And Vomiting Simvastatin (Zocor) 20 mg PO QHS [facility] Vancomycin HCl (Vancomycin Pharmacy To Dose) 1 each IV PKCONSULT TIA PRN Reason: Protocol Review of Systems Constitutional: no weight gain, no fever, no chills, no sweats, no anorexia, no fatigue, no weakness, no malaise Ears, nose, mouth and throat: no ear discharge, no tinnitis, no decreased hearing, no nose pain, no nasal congestion, no nasal discharge Cardiovascular: shortness of breath, dyspnea on exertion, paroxysmal nocturnal dyspnea, no chest pain, no orthopnea, no palpitations, no rapid/irregular heart beat, no edema Respiratory: shortness of breath, dyspnea on exertion, no cough with sputum, no excessive sputum, no hemoptysis Gastrointestinal: no abdominal pain, no nausea, no vomiting, no diarrhea Genitourinary Female: no dysmenorrhea, no pelvic pain, no flank pain, no menorrhagia, no dysuria, no urinary frequency, no urgency Rectal: no pain, no incontinence, no bleeding Musculoskeletal: no neck stiffness, no neck pain, no shooting arm pain, no arm numbness/tingling, no low back pain Integumentary: no rash, no pruritis, no redness, no sores, no wounds Neurological: no transient paralysis, no paralysis, no weakness, no parathesias , no numbness, no tingling Psychiatric: no change in sleep habits, no sleep disturbances, no insomnia Endocrine: no polyphagia, no excessive thirst, no polydipsia, no polyuria, no nocturia Hematologic/Lymphatic: no easy bruising, no easy bleeding Allergic/Immunologic: no urticaria, no allergic rhinitis Exam - Constitutional Vitals: Temp Pulse Resp BP Pulse Ox 98.5 F 107 H 16 143/66 100 04/06/17 02:34 04/06/17 06:33 04/06/17 06:33 04/06/17 06:33 04/06/17 06:33 General appearance: Present: no acute distress - EENT Eyes: Present: PERRL ENT: hearing intact - Neck Neck: Present: supple - Respiratory Respiratory effort: normal Respiratory: bilateral: CTA - Cardiovascular Rhythm: regular Heart Sounds: Present: S1 & S2 - Extremities Extremities: no ischemia Peripheral Pulses: within normal limits - Abdominal General gastrointestinal: Present: soft, non-tender Female genitourinary: Present: deferred - Rectal Rectal Exam: deferred - Integumentary Integumentary: Present: clear (stenotomy wound with purulent drainage), warm - Musculoskeletal Musculoskeletal: strength equal bilaterally - Psychiatric Psychiatric: appropriate mood/affect - Neurologic Neurologic: CNII-XII intact - Allied Health Allied health notes reviewed: nursing Results - Labs CBC & Chem 7: 04/05/17 14:31 04/05/17 14:31 Labs: Laboratory Last Values WBC 21.6 K/mm3 (4.5-11.0) H 04/05/17 14:31 RBC 3.32 M/mm3 (3.65-5.03) L 04/05/17 14:31 Hgb 7.4 gm/dl (10.1-14.3) L 04/05/17 14:31 Hct 24.5 % (30.3-42.9) L 04/05/17 14:31 MCV 74 fl (79-97) L 04/05/17 14:31 MCH 22 pg (28-32) L 04/05/17 14:31 MCHC 30 % (30-34) 04/05/17 14:31 RDW 17.8 % (13.2-15.2) H 04/05/17 14:31 Plt Count 501 K/mm3 (140-440) H 04/05/17 14:31 Lymph % (Auto) [employer] 04/05/17 14:31 [place] % (Auto) [employer] 04/05/17 14:31 Eos % (Auto) [employer] 04/05/17 14:31 Baso % (Auto) [employer] 04/05/17 14:31 Lymph # [employer] 04/05/17 14:31 [place] # [employer] 04/05/17 14:31 Eos # [employer] 04/05/17 14:31 Baso # [employer] 04/05/17 14:31 Add Manual Diff Complete 04/05/17 14:31 Total Counted 100 04/05/17 14:31 Seg Neutrophils % [employer] 04/05/17 14:31 Seg Neuts % (Manual) 84.0 % (40.0-70.0) H 04/05/17 14:31 Band Neutrophils % 0 % 04/05/17 14:31 Lymphocytes % (Manual) 6.0 % (13.4-35.0) L 04/05/17 14:31 Reactive Lymphs % (Man) 0 % 04/05/17 14:31 Monocytes % (Manual) 9.0 % (0.0-7.3) H 04/05/17 14:31 Eosinophils % (Manual) 1.0 % (0.0-4.3) 04/05/17 14:31 Basophils % (Manual) 0 % (0.0-1.8) 04/05/17 14:31 Metamyelocytes % 0 % 04/05/17 14:31 Myelocytes % 0 % 04/05/17 14:31 Promyelocytes % 0 % 04/05/17 14:31 Blast Cells % 0 % 04/05/17 14:31 Nucleated RBC % Not Reportable 04/05/17 14:31 Seg Neutrophils # [employer] 04/05/17 14:31 Seg Neutrophils # Man 18.1 K/mm3 (1.8-7.7) H 04/05/17 14:31 Band Neutrophils # 0.0 K/mm3 04/05/17 14:31 Lymphocytes # (Manual) 1.3 K/mm3 (1.2-5.4) 04/05/17 14:31 Abs React Lymphs (Man) 0.0 K/mm3 04/05/17 14:31 Monocytes # (Manual) 1.9 K/mm3 (0.0-0.8) H 04/05/17 14:31 Eosinophils # (Manual) 0.2 K/mm3 (0.0-0.4) 04/05/17 14:31 Basophils # (Manual) 0.0 K/mm3 (0.0-0.1) 04/05/17 14:31 Metamyelocytes # 0.0 K/mm3 04/05/17 14:31 Myelocytes # 0.0 K/mm3 04/05/17 14:31 Promyelocytes # 0.0 K/mm3 04/05/17 14:31 Blast Cells # 0.0 K/mm3 04/05/17 14:31 WBC Morphology Not Reportable 04/05/17 14:31 Hypersegmented Neuts Not Reportable 04/05/17 14:31 Hyposegmented Neuts Not Reportable 04/05/17 14:31 Hypogranular Neuts Not Reportable 04/05/17 14:31 Smudge Cells Not Reportable 04/05/17 14:31 Toxic Granulation Not Reportable 04/05/17 14:31 Toxic Vacuolation Not Reportable 04/05/17 14:31 Dohle Bodies Not Reportable 04/05/17 14:31 Pelger-Huet Anomaly Not Reportable 04/05/17 14:31 Raquel Rods Not Reportable 04/05/17 14:31 Platelet Estimate Consistent w auto 04/05/17 14:31 Clumped Platelets Rare 04/05/17 14:31 Plt Clumps, EDTA Not Reportable 04/05/17 14:31 Large Platelets Not Reportable 04/05/17 14:31 Giant Platelets Not Reportable 04/05/17 14:31 Platelet Satelliting Not Reportable 04/05/17 14:31 Plt Morphology Comment Not Reportable 04/05/17 14:31 RBC Morphology Not Reportable 04/05/17 14:31 Dimorphic RBCs Not Reportable 04/05/17 14:31 Polychromasia Few 04/05/17 14:31 Hypochromasia 1+ 04/05/17 14:31 Poikilocytosis Not Reportable 04/05/17 14:31 Anisocytosis 1+ 04/05/17 14:31 Microcytosis Not Reportable 04/05/17 14:31 Macrocytosis Not Reportable 04/05/17 14:31 Spherocytes Not Reportable 04/05/17 14:31 Pappenheimer Bodies Not Reportable 04/05/17 14:31 Sickle Cells Not Reportable 04/05/17 14:31 Target Cells Not Reportable 04/05/17 14:31 Tear Drop Cells Rare 04/05/17 14:31 Ovalocytes Few 04/05/17 14:31 Helmet Cells Not Reportable 04/05/17 14:31 [place] Bodies Not Reportable 04/05/17 14:31 Fitzgerald Rings Not Reportable 04/05/17 14:31 Nixon Cells Not Reportable 04/05/17 14:31 Bite Cells Not Reportable 04/05/17 14:31 Crenated Cell Not Reportable 04/05/17 14:31 Elliptocytes Few 04/05/17 14:31 Acanthocytes (Spur) Not Reportable 04/05/17 14:31 Rouleaux Not Reportable 04/05/17 14:31 Hemoglobin C Crystals Not Reportable 04/05/17 14:31 Schistocytes Not Reportable 04/05/17 14:31 Malaria parasites Not Reportable 04/05/17 14:31 Sachin Bodies Not Reportable 04/05/17 14:31 Hem Pathologist Commnt No 04/05/17 14:31 PT 15.5 Sec. (12.2-14.9) H 04/06/17 02:15 INR 1.17 (0.87-1.13) H 04/06/17 02:15 APTT 30.1 Sec. (24.2-36.6) 04/06/17 02:15 Sodium 136 mmol/L (137-145) L 04/05/17 14:31 Potassium 4.4 mmol/L (3.6-5.0) 04/05/17 14:31 Chloride 97.0 mmol/L (98-107) L 04/05/17 14:31 Carbon Dioxide 23 mmol/L (22-30) 04/05/17 14:31 Anion Gap 20 mmol/L 04/05/17 14:31 BUN 12 mg/dL (7-17) 04/05/17 14:31 Creatinine 1.1 mg/dL (0.7-1.2) 04/05/17 14:31 Estimated GFR > 60 ml/min 04/05/17 14:31 BUN/Creatinine Ratio 10.90 % 04/05/17 14:31 Glucose 147 mg/dL (65-100) H 04/05/17 14:31 POC Glucose 185 (70-105) H 04/05/17 14:33 Calcium 9.2 mg/dL (8.4-10.2) 04/05/17 14:31 Troponin T < 0.010 ng/mL (0.00-0.029) 04/05/17 20:31 Blood Type O POSITIVE 04/06/17 02:00 Antibody Screen Negative 04/06/17 02:00 Assessment and Plan Assessment and plan: Patient is a 61-year-old black female with a past medical history diabetes, hypertension, triple bypass performed on March 04 at [facility], who presents to the hospital complaining of worsening shortness of breath, elevated sugars and d left-sided neck soreness extending into the shoulder. ASSESSMENT/PLAN Sepsis due to stenotomy wound Patient S/P triple bypass performed on March 04 at [facility]. Most likely due to stenotomy wound with purulent drainage. Blood cultures urine culture collected prior to antibiotic Follow blood cultures Lactic acid ordered IV fluid resuscitation and gently fluid hydration Initiated treatment IV vancomycin and Zosyn Infectious disease consulted Supportive care Leukocytosis due to Sepsis Initiated treatment IV vancomycin and Zosyn Repeat CBC closely monitor Hypertension We will resume home antihypertensive medications Closely monitor blood pressure Diabetes mellitus Accu-Chek before meals and at bedtime Sliding scale insulin/NovoLog Morbid obesity BMI>52.2 Weight reduction counselling done Nutrition consult. Wound Most likely due to stenotomy wound with purulent drainage. Wound care consulted DVT/Prophylaxis Lovenox Advance Directives: Yes VTE prophylaxis?: Chemical Contraindication Mechanical VTE Prophylaxis: Treatment Not Indicated Plan of care discussed with patient/family: Yes <GAIL LANZA - Last Filed: 04/06/17 17:51> History of Present Illness Date of admission: 04/06/17 12:34 Medications and Allergies Active Meds: Active Medications Acetaminophen (Tylenol) 650 mg PO Q4H PRN PRN Reason: Pain MILD(1-3)/Fever >100.5/ANTHONY Bisacodyl (Dulcolax) 10 mg OR QDAY PRN PRN Reason: Constipation unrelieved by MOM Dextrose (D50w (25gm) Syringe) 50 ml IV PRN PRN PRN Reason: Hypoglycemia Enoxaparin Sodium (Lovenox) 40 mg SUB-Q DAILY TIA Glipizide (Glucotrol) 2.5 mg PO QDAY TIA Last Admin: 04/06/17 16:07 Dose: 2.5 mg Hydromorphone HCl (Dilaudid) 0.5 mg IV Q4H PRN PRN Reason: Pain , Severe (7-10) Last Admin: 04/06/17 16:00 Dose: 0.5 mg Piperacillin Sod/Tazobactam Sod (Zosyn/Ns 3.375gm/50ml) 3.375 gm in 50 mls @ 100 mls/hr IV Q6HR [facility] Last Admin: 04/06/17 12:19 Dose: 100 mls/hr Sodium Chloride (Nacl 0.9% 1000 Ml) 1,000 mls @ 100 mls/hr IV DIRECT TIA Last Admin: 04/06/17 13:18 Dose: 100 mls/hr Vancomycin HCl 2,000 mg/ (Sodium Chloride) 520 mls @ 250 mls/hr IV Q24H TIA Last Admin: 04/06/17 16:06 Dose: 250 mls/hr Insulin Aspart (Novolog) 18 units SUB-Q AC [facility] Last Admin: 04/06/17 12:19 Dose: 18 units Insulin Detemir (Levemir) 60 units SUB-Q QHS TIA Metformin HCl (Glucophage) 250 mg PO QDAY [facility] Last Admin: 04/06/17 13:17 Dose: 250 mg Ondansetron HCl (Zofran) 4 mg IM Q4H PRN PRN Reason: Nausea And Vomiting Simvastatin (Zocor) 20 mg PO QHS TIA Vancomycin HCl (Vancomycin Pharmacy To Dose) 1 each IV PKCONSULT TIA PRN Reason: Protocol Exam - Constitutional Vitals: Temp Pulse Resp BP Pulse Ox 98.9 F 112 H 15 147/80 99 04/06/17 12:24 04/06/17 16:01 04/06/17 16:01 04/06/17 16:01 04/06/17 16:01 Results - Labs CBC & Chem 7: 04/05/17 14:31 04/05/17 14:31 Labs: Laboratory Last Values WBC 21.6 K/mm3 (4.5-11.0) H 04/05/17 14:31 RBC 3.32 M/mm3 (3.65-5.03) L 04/05/17 14:31 Hgb 7.4 gm/dl (10.1-14.3) L 04/05/17 14:31 Hct 24.5 % (30.3-42.9) L 04/05/17 14:31 MCV 74 fl (79-97) L 04/05/17 14:31 MCH 22 pg (28-32) L 04/05/17 14:31 MCHC 30 % (30-34) 04/05/17 14:31 RDW 17.8 % (13.2-15.2) H 04/05/17 14:31 Plt Count 501 K/mm3 (140-440) H 04/05/17 14:31 Lymph % (Auto) [employer] 04/05/17 14:31 [place] % (Auto) [employer] 04/05/17 14:31 Eos % (Auto) [employer] 04/05/17 14:31 Baso % (Auto) [employer] 04/05/17 14:31 Lymph # [employer] 04/05/17 14:31 [place] # [employer] 04/05/17 14:31 Eos # [employer] 04/05/17 14:31 Baso # [employer] 04/05/17 14:31 Add Manual Diff Complete 04/05/17 14:31 Total Counted 100 04/05/17 14:31 Seg Neutrophils % [employer] 04/05/17 14:31 Seg Neuts % (Manual) 84.0 % (40.0-70.0) H 04/05/17 14:31 Band Neutrophils % 0 % 04/05/17 14:31 Lymphocytes % (Manual) 6.0 % (13.4-35.0) L 04/05/17 14:31 Reactive Lymphs % (Man) 0 % 04/05/17 14:31 Monocytes % (Manual) 9.0 % (0.0-7.3) H 04/05/17 14:31 Eosinophils % (Manual) 1.0 % (0.0-4.3) 04/05/17 14:31 Basophils % (Manual) 0 % (0.0-1.8) 04/05/17 14:31 Metamyelocytes % 0 % 04/05/17 14:31 Myelocytes % 0 % 04/05/17 14:31 Promyelocytes % 0 % 04/05/17 14:31 Blast Cells % 0 % 04/05/17 14:31 Nucleated RBC % Not Reportable 04/05/17 14:31 Seg Neutrophils # [employer] 04/05/17 14:31 Seg Neutrophils # Man 18.1 K/mm3 (1.8-7.7) H 04/05/17 14:31 Band Neutrophils # 0.0 K/mm3 04/05/17 14:31 Lymphocytes # (Manual) 1.3 K/mm3 (1.2-5.4) 04/05/17 14:31 Abs React Lymphs (Man) 0.0 K/mm3 04/05/17 14:31 Monocytes # (Manual) 1.9 K/mm3 (0.0-0.8) H 04/05/17 14:31 Eosinophils # (Manual) 0.2 K/mm3 (0.0-0.4) 04/05/17 14:31 Basophils # (Manual) 0.0 K/mm3 (0.0-0.1) 04/05/17 14:31 Metamyelocytes # 0.0 K/mm3 04/05/17 14:31 Myelocytes # 0.0 K/mm3 04/05/17 14:31 Promyelocytes # 0.0 K/mm3 04/05/17 14:31 Blast Cells # 0.0 K/mm3 04/05/17 14:31 WBC Morphology Not Reportable 04/05/17 14:31 Hypersegmented Neuts Not Reportable 04/05/17 14:31 Hyposegmented Neuts Not Reportable 04/05/17 14:31 Hypogranular Neuts Not Reportable 04/05/17 14:31 Smudge Cells Not Reportable 04/05/17 14:31 Toxic Granulation Not Reportable 04/05/17 14:31 Toxic Vacuolation Not Reportable 04/05/17 14:31 Dohle Bodies Not Reportable 04/05/17 14:31 Pelger-Huet Anomaly Not Reportable 04/05/17 14:31 Raquel Rods Not Reportable 04/05/17 14:31 Platelet Estimate Consistent w auto 04/05/17 14:31 Clumped Platelets Rare 04/05/17 14:31 Plt Clumps, EDTA Not Reportable 04/05/17 14:31 Large Platelets Not Reportable 04/05/17 14:31 Giant Platelets Not Reportable 04/05/17 14:31 Platelet Satelliting Not Reportable 04/05/17 14:31 Plt Morphology Comment Not Reportable 04/05/17 14:31 RBC Morphology Not Reportable 04/05/17 14:31 Dimorphic RBCs Not Reportable 04/05/17 14:31 Polychromasia Few 04/05/17 14:31 Hypochromasia 1+ 04/05/17 14:31 Poikilocytosis Not Reportable 04/05/17 14:31 Anisocytosis 1+ 04/05/17 14:31 Microcytosis Not Reportable 04/05/17 14:31 Macrocytosis Not Reportable 04/05/17 14:31 Spherocytes Not Reportable 04/05/17 14:31 Pappenheimer Bodies Not Reportable 04/05/17 14:31 Sickle Cells Not Reportable 04/05/17 14:31 Target Cells Not Reportable 04/05/17 14:31 Tear Drop Cells Rare 04/05/17 14:31 Ovalocytes Few 04/05/17 14:31 Helmet Cells Not Reportable 04/05/17 14:31 [place] Bodies Not Reportable 04/05/17 14:31 Fitzgerald Rings Not Reportable 04/05/17 14:31 [place] Cells Not Reportable 04/05/17 14:31 Bite Cells Not Reportable 04/05/17 14:31 Crenated Cell Not Reportable 04/05/17 14:31 Elliptocytes Few 04/05/17 14:31 Acanthocytes (Spur) Not Reportable 04/05/17 14:31 Rouleaux Not Reportable 04/05/17 14:31 Hemoglobin C Crystals Not Reportable 04/05/17 14:31 Schistocytes Not Reportable 04/05/17 14:31 Malaria parasites Not Reportable 04/05/17 14:31 Sachin Bodies Not Reportable 04/05/17 14:31 Hem Pathologist Commnt No 04/05/17 14:31 PT 15.5 Sec. (12.2-14.9) H 04/06/17 02:15 INR 1.17 (0.87-1.13) H 04/06/17 02:15 APTT 30.1 Sec. (24.2-36.6) 04/06/17 02:15 Sodium 136 mmol/L (137-145) L 04/05/17 14:31 Potassium 4.4 mmol/L (3.6-5.0) 04/05/17 14:31 Chloride 97.0 mmol/L (98-107) L 04/05/17 14:31 Carbon Dioxide 23 mmol/L (22-30) 04/05/17 14:31 Anion Gap 20 mmol/L 04/05/17 14:31 BUN 12 mg/dL (7-17) 04/05/17 14:31 Creatinine 1.1 mg/dL (0.7-1.2) 04/05/17 14:31 Estimated GFR > 60 ml/min 04/05/17 14: BUN/Creatinine Ratio 10.90 % 04/05/17 14:31 Glucose 147 mg/dL (65-100) H 04/05/17 14:31 POC Glucose 309 (70-105) H 04/06/17 11:50 Lactic Acid 1.60 mmol/L (0.7-2.0) 04/06/17 13:53 Calcium 9.2 mg/dL (8.4-10.2) 04/05/17 14:31 Troponin T < 0.010 ng/mL (0.00-0.029) 04/05/17 20:31 Urine Color Yellow (Yellow) 04/06/17 17:00 Urine Turbidity Slightly-cloudy (Clear) 04/06/17 17:00 Urine pH 5.0 (5.0-7.0) 04/06/17 17:00 Ur Specific [place] 1.021 (1.003-1.030) 04/06/17 17:00 Urine Protein 100 mg/dl mg/dL (Negative) 04/06/17 17:00 Urine Glucose (UA) 150 mg/dL (Negative) 04/06/17 17:00 Urine Ketones Neg mg/dL (Negative) 04/06/17 17:00 Urine Blood Neg (Negative) 04/06/17 17:00 Urine Nitrite Neg (Negative) 04/06/17 17:00 Urine Bilirubin Neg (Negative) 04/06/17 17:00 Urine Urobilinogen < 2.0 mg/dL (<2.0) 04/06/17 17:00 Ur Leukocyte Esterase Neg (Negative) 04/06/17 17:00 Urine WBC (Auto) 6.0 /HPF (0.0-6.0) 04/06/17 17:00 Urine RBC (Auto) 2.0 /HPF (0.0-6.0) 04/06/17 17:00 U Epithel Cells (Auto) 1.0 /HPF (0-13.0) 04/06/17 17:00 Urine Bacteria (Auto) 1+ /HPF (Negative) 04/06/17 17:00 Hyaline Casts 1 /LPF 04/06/17 17:00 Blood Type O POSITIVE 04/06/17 02:00 Antibody Screen Negative 04/06/17 02:00 Assessment and Plan Assessment and plan: I saw and evaluated the patient. I agree with the findings and the plan of care as documented in the Nurse Practitioner's h&P note.
[2017-04-06] MEDS ORDERED: VANCOMYCIN PHARMACY TO DOSE IV SCH (09:00)
[2017-04-06] MEDS ORDERED: NACL 0.9% 1000 ML 1,000 ML IV SCH (09:00)
[2017-04-06] MEDS ORDERED: GLUCOTROL PO SCH (10:00)
[2017-04-06] MEDS ORDERED: GLIPIZIDE PO SCH (10:00)
[2017-04-06] MEDS ORDERED: GLUCOPHAGE PO SCH (10:00)
[2017-04-06] MEDS ORDERED: METFORMIN HCL PO SCH (10:00)
[2017-04-06] MEDS ORDERED: INSULIN LISPRO 18 UNIT SQ SCH (11:30)
[2017-04-06] MEDS: NOVOLOG SUB-Q SCH ×2 (12:19→19:27)
[2017-04-06] MEDS: ZOSYN/NS 3.375GM/50ML 3.375 GM/50 ML BAG IV SCH ×2 (12:19→20:06)
[2017-04-06] MEDS ORDERED: TYLENOL PO PRN (12:34)
[2017-04-06] MEDS ORDERED: DULCOLAX PR PRN (12:34)
[2017-04-06] MEDS ORDERED: D50W (25GM) Syringe IV PRN (12:35)
[2017-04-06] MEDS ORDERED: VANCOMYCIN 2,000 MG in NACL 0.9% 500 ML 500 ML IV SCH (13:00)
[2017-04-06] MEDS ORDERED: DILAUDID IV PRN (14:16)
--- NOTE | 2017-04-06 15:06 | Admit Criteria Form ---
Admission Criteria Documentation: SEPSIS and OTHER FEBRILE ILLNESS, W/O FOCAL INFECTION Clinical Indications for Admission to Inpatient Care ( Place 'X' for any and all applicable criteria): Admission to inpatient status for two midnights or more is indicated for ANY ONE of the following (1)(2)(3): [X ] I. Bacteremia [X ]II. Suspected or identified specific infection requiring hospitalization (eg, meningitis, endocarditis) [ ]III. Hemodynamic instability [ ]IV. Temperature > 104.9 0F (40.5 0C) (oral) [ ]V. Core (rectal) temperature < 95 0F (35 0C) (eg, thought to be due to infection) [ ]. Altered mental status that is severe or persistent [ ]VII. Failure or unavailability of outpatient antimicrobial treatment [ ]VIII. Hypoxemia [ ]IX. Seizures [ ]X. New coagulopathy (eg, reduced platelet count consistent with disseminated intravascular coagulation) [X ]XI. Inpatient admission required [B] rather than observation care because of 1 or more of the following 1) Tachypnea not responsive to outpatient or observation treatment 2) Metabolic disorder (eg, hypoglycemia, hyperglycemia, metabolic acidosis ) that persists despite outpatient and observation care treatment 3) Evidence of end-organ dysfunction (eg, rising creatinine, myocardial ischemia, rising liver function tests) that is severe or persists despite observation care treatment 4) Temperature > 103.1 0F (39.5 0C) (oral) that is not responsive to observation care treatment 5) Dehydration that is severe or persistent [X] 6) Parenteral antimicrobial regimen that must be implemented on inpatient basis (eg, infusion or monitoring needs beyond capabilities of outpatient parenteral therapy) 7) Strict or protective (eg, laminar flow) isolation [X] 8) Other condition, treatment or monitoring requiring inpatient admission Extended stay beyond goal length of stay may be needed for(1)(3) [ ]a) Persistent Hypotension [ ]b) Positive blood cultures [ ]c) Lack of improvement on antimicrobial treatment (eg, continued fever) [ ]d) Active comorbid illness (eg, heart failure, renal failure) [ ]e) High-risk febrile neutropenia [ ]f) Insufficient oral intake [ ]g) insufficient oral intake The original [employer] content created by [employer] has been revised. The portions of the content which have been revised are identified through the use of italic text or in bold, and [facility] has neither reviewed nor approved the modified material. All other unmodified content is copyright [facility]. Please see references footnoted in the original [facility] edition 2017
[2017-04-06] MEDS ORDERED: DILAUDID ONE (15:34)
[2017-04-06 16:35] VITALS: BP 147/80
[2017-04-06 17:17] LABS: Bacteria,Urine 1+ /HPF (Negative); Bilirubin,Urine NEG (Negative); Blood,Urine NEG (Negative); Ketones,Urine NEG (Negative); Leukocyte Esterase,Urine NEG (Negative); Nitrite,Urine NEG (Negative); Urobilinogen,Urine < 2.0 mg/dL (<2.0)
--- NOTE | 2017-04-06 17:49 | Consultation ---
History of Present Illness Consult date: 04/06/17 Requesting physician: SAJAN CORONADO Consult reason: congestive heart failure, other (sternal wound infection) History of present illness: The patient suffered an acute myocardial infarction in the earlier part of 03/08 and underwent coronary angiography at [facility] which revealed multivessel disease. Left ventriculography revealed an ejection fraction of 40%. She subsequently underwent off-pump CABG 2 with CA to the LAD and reverse SVG to OM1 on 2016 at [facility]. She presented to the emergency department with a two-day history of a purulent drainage from her sternotomy wound. She claims that her physical therapist noted it and advised her to come to the emergency department. She denies fever or chills. She complains of pain around the sternotomy scar. For the past 2 weeks, she has also been experiencing exertional dyspnea with orthopnea. Past History Past Medical History: anemia (postoperatively), CAD, diabetes, hypertension, hyperlipidemia, other (glaucoma) Past Surgical History: CABG (2 at [facility] on 02/26/17) Social history: (with one child). denies: smoking, alcohol abuse Family history: CAD Medications and Allergies Allergies Allergy/AdvReac Type Severity Reaction Status Date / Time No Known Allergies Allergy Verified 02/18/17 03:33 Home Medications Medication Instructions Recorded Confirmed Last Taken Type Glipizide/Metformin HCl 1 each PO DAILY 02/19/17 04/06/17 5 Months Ago History [glipiZIDE-Metformin 2.5-250 mg] Insulin Glargine [Lantus VIAL] 60 units SQ QHS 02/19/17 04/06/17 5 Months Ago History Insulin Lispro [Humalog] 18 unit SQ AC 02/19/17 04/06/17 5 Months Ago History Simvastatin [Zocor TAB] 20 mg PO QHS 02/19/17 04/06/17 5 Months Ago History Active Meds: Active Medications Acetaminophen (Tylenol) 650 mg PO Q4H PRN PRN Reason: Pain MILD(1-3)/Fever >100.5/ANTHONY Bisacodyl (Dulcolax) 10 mg MO QDAY PRN PRN Reason: Constipation unrelieved by MOM Dextrose (D50w (25gm) Syringe) 50 ml IV PRN PRN PRN Reason: Hypoglycemia Enoxaparin Sodium (Lovenox) 40 mg SUB-Q DAILY [facility] Glipizide (Glucotrol) 2.5 mg PO QDAY [facility] Last Admin: 04/06/17 16:07 Dose: 2.5 mg Hydromorphone HCl (Dilaudid) 0.5 mg IV Q4H PRN PRN Reason: Pain , Severe (7-10) Last Admin: 04/06/17 16:00 Dose: 0.5 mg Piperacillin Sod/Tazobactam Sod (Zosyn/Ns 3.375gm/50ml) 3.375 gm in 50 mls @ 100 mls/hr IV Q6HR [facility] Last Admin: 04/06/17 12:19 Dose: 100 mls/hr Sodium Chloride (Nacl 0.9% 1000 Ml) 1,000 mls @ 100 mls/hr IV DIRECT [facility] Last Admin: 04/06/17 13:18 Dose: 100 mls/hr Vancomycin HCl 2,000 mg/ (Sodium Chloride) 520 mls @ 250 mls/hr IV Q24H [facility] Last Admin: 04/06/17 16:06 Dose: 250 mls/hr Insulin Aspart (Novolog) 18 units SUB-Q AC [facility] Last Admin: 04/06/17 12:19 Dose: 18 units Insulin Detemir (Levemir) 60 units SUB-Q QHS [facility] Metformin HCl (Glucophage) 250 mg PO QDAY [facility] Last Admin: 04/06/17 13:17 Dose: 250 mg Ondansetron HCl (Zofran) 4 mg IM Q4H PRN PRN Reason: Nausea And Vomiting Simvastatin (Zocor) 20 mg PO QHS [facility] Vancomycin HCl (Vancomycin Pharmacy To Dose) 1 each IV PKCONSULT [facility] PRN Reason: Protocol Review of Systems Constitutional: no fever, no chills Ears, nose, mouth and throat: no ear pain, no ear discharge, no sore throat Cardiovascular: chest pain, orthopnea, edema, shortness of breath, no lightheadedness Respiratory: dyspnea on exertion, no cough, no hemoptysis Gastrointestinal: no abdominal pain, no nausea, no vomiting, no diarrhea, no constipation Genitourinary Female: no dysuria, no urinary frequency Rectal: no pain, no bleeding Musculoskeletal: no neck stiffness, no neck pain, no myalgias Integumentary: no rash, no pruritis Neurological: no weakness, no parathesias, no numbness, no tingling, no headaches Endocrine: no cold intolerance, no heat intolerance Hematologic/Lymphatic: no easy bruising, no easy bleeding Allergic/Immunologic: no urticaria, no wheezing Physical Examination Vital Signs Last Vital Signs Temp 98.9 F 04/06/17 12:24 Pulse 112 H 04/06/17 16:01 Resp 15 04/06/17 16:01 BP 147/80 04/06/17 16:01 Pulse Ox 99 04/06/17 16:01 General appearance: no acute distress HEENT: Positive: EOMI, Normocephaly, Mucus Membranes Moist Neck: Positive: neck supple, trachea midline, JVD/HJR (elevated) Cardiac: Positive: Reg Rate and Rhythm, S1/S2 Lungs: Positive: clear to auscultation Neuro: Positive: Grossly Intact Abdomen: Positive: Soft, Active Bowel Sounds. Negative: Tender Skin: Positive: Clear. Negative: Rash Musculoskeletal: Normal Range of Motion Extremities: Present: +1 Edema (pitting bilateral leg edema) Results 04/05/17 14:31 04/05/17 14:31 - Imaging and Cardiology EKG: image reviewed EKG interpretations - Telemetry EKG Rhythm: Sinus Tachycardia - EKG Sinus rhythms and dysrhythmias: sinus tachycardia Repolarization changes or abnormalities: ST or T wave suggestive of ischemia Assessment and Plan Initiate intravenous diuretics. Resume anti-ischemic regimen. Ultimately, in addition to antibiotic therapy and ID consultation, she may benefit from transfer to [facility] for further management of her sternotomy wound infection. - Patient Problems (1) Sternal wound infection Current Visit: Yes Status: Acute (2) S/P CABG (coronary artery bypass graft) Current Visit: Yes Status: Acute (3) Acute systolic heart failure Current Visit: Yes Status: Acute (4) Ischemic cardiomyopathy Current Visit: Yes Status: Chronic (5) CAD (coronary artery disease) Current Visit: Yes Status: Chronic Qualifiers: Coronary Disease-Associated Artery/Lesion type: [place] artery [place] vs. transplanted heart: solomon heart Associated angina: A (6) Hypertension Current Visit: Yes Status: Chronic Qualifiers: Hypertension type: essential hypertension Qualified Code(s): I10 - Essential (primary) hypertension (7) Morbid obesity Current Visit: Yes Status: Chronic (8) Type 2 diabetes mellitus Current Visit: Yes Status: Chronic Qualifiers: Diabetes mellitus complication status: D Diabetes mellitus complication detail: D Diabetic retinopathy severity: D Proliferative retinopathy type: P Diabetes mellitus macular edema: D Diabetes mellitus change house attendant insulin use : D Laterality: L Chronic kidney disease stage: C
[2017-04-06] MEDS ORDERED: ZESTRIL PO SCH (20:00)
[2017-04-06] MEDS ORDERED: LEVEMIR SUB-Q SCH (22:00)
[2017-04-06] MEDS ORDERED: INSULIN GLARGINE 60 UNIT SQ SCH (22:00)
[2017-04-06] MEDS ORDERED: COREG PO SCH (22:00)
[2017-04-06] MEDS ORDERED: ZOCOR PO SCH (22:00)
[2017-04-06] MEDS ORDERED: K-DUR PO SCH (22:00)
[2017-04-07] MEDS ORDERED: CALCIUM CHLORIDE IV ONE (00:23)
[2017-04-07] MEDS ORDERED: SODIUM BICARBONATE IV ONE (00:23)
[2017-04-07] MEDS ORDERED: ADRENALIN ONE (00:23)
--- NOTE | 2017-04-07 01:32 | Event Note ---
Date: 04/07/17 Code Blue was called at 0023 hrs Patient was found in Asystole. ACLS protocol initiated. Inspite of 3 epinephrines intubation NaHco3 IV patient could not converted from ASystole Was pronounced at 0034 hrs.
[2017-04-07] MEDS ORDERED: LASIX IV SCH (06:00)
[2017-04-07] MEDS ORDERED: LOVENOX SUB-Q SCH (10:00)
--- NOTE | 2017-04-07 17:39 | Death Summary ---
Summary - Providers Date of service: 04/07/17 Consults: 04/06/17 13:35 Consult to Physician [CONS] Routine Consulting Provider: ABELARDO BOLDEN Reason For Exam: Sepsis due to infected incision. Place consult to:: yes Notified:: dr. mann Phone number called:: yes Was contact made?: Yes Time called:: 18:46 Comment:: dr. mann will see patient on sunday04/06/17 14:44 Consult to Physician [CONS] Routine Consulting Provider: EDWARD FAITH Reason For Exam: S/P CABG Place consult to:: yes Notified:: answering service Phone number called:: [phone] Was contact made?: Yes If yes, spoke with:: jeff Time called:: 18:51 04/06/17 21:48 Consult to Wound/ET Nurse [CONS] Routine Reason For Exam: wound eval- midline chest Attending: GAIL LANZA MD - summary Date of admission: 04/06/17 12:34 Date of : 04/07/17 Reason for admission: severe sepsis secondary to sternotomy wound infection Significant findings: 61 year old -German female with past medical history significant for CAD status post triple bypass recently, hypertension, and erythematous, anemia, presented to the emergency department for complaints of purulent discharge from the sternotomy site. Patient has CAD on 03/04/2017 and CABG was done at [facility]. For the last 2 days patient noticed purulent discharge from the sternotomy site, therapist advised her to come the hospital. Patient denied fever, chills, chest pain but admitted for left shoulder pain. In the emergency department workup was done and patient has marked leukocytosis of 21.6K, with left shift, anemia. Patient was admitted to the floor for the management of severe sepsis, sternotomy wound dehiscence. ID consulted. Cardiology consulted and recommended lasix and continue with the medical management and transfer next day for wound debridement to [facility] [place] because her CABG was done there. Patient was started treatment with IV antibiotics according to sepsis protocol. By the time I evaluated her the patient is hemodynamically stable and she is complaining only of mild shoulder pain. On physical examination there was minimal purulent discharge from the lower part sternotomy site. Per the web applications programmer Dr (Dr De La O) the patient was found asystole late last night and was resucitated according to ACLS protocol despite that the patient . Procedures/treatments rendered: Patient was treated for severe sepsis according to sepsis protocol, ACLS protocol. - Final diagnosis (1) Severe sepsis Note: Final diagnosis: (2) Severe sepsis with acute organ dysfunction Note: Final diagnosis: (3) Anemia Qualifiers: Anemia type: A Iron deficiency anemia type: I Vitamin B12 deficiency anemia type: V Folate deficiency anemia type: F Bone marrow failure anemia type: B Hemolytic anemia type: H Other causes of anemia: O Chronic kidney disease stage: C Note: Final diagnosis: (4) Infected sternotomy closure wire Qualifiers: Encounter type: E Note: Final diagnosis: (5) S/P CABG (coronary artery bypass graft) Note: Final diagnosis: (6) Hyperlipidemia Qualifiers: Hyperlipidemia type: H Note: Final diagnosis: (7) Hypertension Qualifiers: Hypertension type: essential hypertension Qualified Code(s): I10 - Essential (primary) hypertension Note: Final diagnosis: (8) Ischemic cardiomyopathy Note: Final diagnosis: (9) Morbid obesity Note: Final diagnosis: (10) Type 2 diabetes mellitus Qualifiers: Diabetes mellitus complication status: D Diabetes mellitus complication detail: D Diabetic retinopathy severity: D Proliferative retinopathy type: P Diabetes mellitus macular edema: D Diabetes mellitus usp insulin use : D Laterality: L Chronic kidney disease stage: C Note: Final diagnosis:
== END 2017-04-07 06:00 | DRG 559 ==
LOC: ED 13:23 → 3A 04-06 12:34
PROVIDERS: ADMIT Internal Medicine; ATTEND Internal Medicine
DX: T84.7XXA Infection and inflammatory reaction due to other internal orthopedic prosthetic devices, implants and grafts, initial encounter (principal); A41.9 Sepsis, unspecified organism; R65.20 Severe sepsis without septic shock; Z68.42 Body mass index [BMI] 45.0-49.9, adult; E11.9 Type 2 diabetes mellitus without complications; Z87.891 Personal history of nicotine dependence; Z79.4 Long term (current) use of insulin; I11.0 Hypertensive heart disease with heart failure; I50.9 Heart failure, unspecified; D64.9 Anemia, unspecified; Z95.1 Presence of aortocoronary bypass graft; E66.01 Morbid (severe) obesity due to excess calories; I25.5 Ischemic cardiomyopathy
CPT/HCPCS: 31500; 36415; 71020; 80048; 81001; 82140; 82962; 84484; 85007; 85025; 85610; 85730; 86850; 86900; 86901; 87040; 87116; 93005; 93010; 96365; 96366; 96368; 96375; A9270-GY; J0171; J1170; J1815; J1818; J2270; J2405; J2543; J3370; J7030; J7040